=== PATIENT | female | born 1940 | race Caucasian/White ===

== ENCOUNTER → 2016-11-07 | Outpatient (CLI) | payer BC ==
[~2016-11-07] MED LIST: ANT25 PO; ASPEC81 PO; CLTP PO; CRG25 PO; CYAN100020 PO; CYM/30 PO; CZR50 PO; FRS/40 PO; INSDGI SC; KLN1X PO; NVLGI SC; OMEG10007 PO; PRLSR20 PO; RISP1TAB68 PO; SIMV20TA2 PO
[2016-11-07 16:21] LABS: BASO % 0.2 %; BASO ABS # 0.02 K/uL (0-0.2); COMPLETE YES; EOS % 2.5 %; HEMATOCRIT 40.5 % (37-47); IG% 0.2 %; LYMPH % 27.3 %; LYMPH ABS # 2.44 K/uL (1.2-3.4); MEAN CELL VOLUME 91.4 fL (80-100); MEAN CORPUSCULAR HEMOGLOBIN 32.1 pg (25-34); MEAN CORPUSCULAR HGB CONC 35.1 g/dl (32-36); MEAN PLATELET VOLUME 10.6 fL (7.4-10.4); MONO % 6.8 %; PLATELET COUNT 242 K/uL (130-400); RED BLOOD COUNT 4.43 M/uL (4.2-5.4); WHITE BLOOD COUNT 8.95 K/uL (4.8-10.8)
[2016-11-07 16:49] LABS: BLOOD UREA NITROGEN 22 mg/dl (7-18); BUN/CREATININE RATIO 12.7 (10-20); CALCIUM 9.3 mg/dl (8.5-10.1); CARBON DIOXIDE 29 mmol/L (21-32); CHLORIDE 102 mmol/L (98-107); GLUCOSE 182 mg/dl (70-99); POTASSIUM 3.8 mmol/L (3.5-5.1); SODIUM 142 mmol/L (136-145)
[2016-11-07 17:02] LABS: CHOLESTEROL 169 mg/dl (0-200); CHOLESTEROL/HDL RATIO 3.8; HDL CHOLESTEROL 44 mg/dl; LDL CHOLESTEROL CALCULATED 65 mg/dl; PHOSPHORUS 3.1 mg/dl (2.5-4.9); THYROID STIMULATING HORMONE 0.979 uIu/ml (0.300-4.500); TRIGLYCERIDES 301 mg/dl (0-150); VERY LOW DENSITY LIPOPROT CALC 60 mg/dl
[2016-11-07 18:01] LABS: URINE PROTIEN/CREAT RATIO 0.1 (0-0.2); URINE TOTAL PROTEIN 10.5 mg/dl (0-11.9)
[2016-11-08 07:03] LABS: ESTIMATED AVERAGE GLUCOSE 169 mg/dl; HA1C FLAG Normal (Normal)
--- NOTE | 2016-11-12 13:34 | CODING QUERY MEDICAL NECESSITY ---
SUPPORTING DIAGNOSIS NEEDED A supporting diagnosis is required for the test/procedure performed on this patient in order for us to be reimbursed by the patient's insurance. Please provide a supporting diagnosis for the following test/procedure listed below next to the test name along with your signature. *If there is no additional diagnosis for this patient that would support the following test/procedure please document that below next to the test/procedure. Test(s)/Procedure(s) that require a supporting diagnosis: DOS 11/07 * Vitamin D DIAGNOSIS: Provider Signature: Date: Thank you Sabi Alvarez Health Information Management Once completed, please kindly fax back to [phone] For questions please call [phone]
== END ==
LOC: C.LAB1850 15:05
PROVIDERS: ATTEND Nurse Practitioner Family
DX: N18.9 Chronic kidney disease, unspecified (principal); E11.8 Type 2 diabetes mellitus with unspecified complications; I12.9 Hypertensive chronic kidney disease with stage 1 through stage 4 chronic kidney disease, or unspecified chronic kidney disease; E78.2 Mixed hyperlipidemia; E55.9 Vitamin D deficiency, unspecified

== ENCOUNTER → 2016-11-22 | Outpatient (CLI) | payer BC | END | disposition home or self-care (01) | LOC: C.PAPS 09:47 | PROVIDERS: ATTEND Obstetrics & Gynecology | DX: Z01.419 Encounter for gynecological examination (general) (routine) without abnormal findings (principal) ==

== ENCOUNTER → 2017-03-14 | Outpatient (CLI) | payer BC ==
[2017-03-14 12:34] LABS: ESTIMATED AVERAGE GLUCOSE 163 mg/dl; HA1C FLAG Normal (Normal)
[2017-03-14 12:45] LABS: URINE APPEARANCE CLEAR (CLEAR); URINE BILIRUBIN NEG (NEG); URINE COLOR YELLOW; URINE EPITHELIAL CELL AUTO >30 /lpf (0-5); URINE NITRITE NEG (NEG); URINE SPECIFIC GRAVITY 1.016 (1.000-1.030); UROBILINOGEN NEG (NEG); ZZUR CULT IF INDIC CLEAN CATCH YES
[2017-03-14 12:50] LABS: BLOOD UREA NITROGEN 20 mg/dl (7-18); BUN/CREATININE RATIO 11.6 (10-20); CARBON DIOXIDE 30 mmol/L (21-32); CHLORIDE 101 mmol/L (98-107); GLUCOSE 196 mg/dl (70-99); POTASSIUM 3.6 mmol/L (3.5-5.1); SODIUM 141 mmol/L (136-145)
[2017-03-14 12:51] LABS: PHOSPHORUS 3.1 mg/dl (2.5-4.9)
[2017-03-14 12:55] LABS: MANUAL MICROSCOPIC REQUIRED? NO; REVIEW REQ? NO
[2017-03-14 12:57] LABS: CALCIUM 9.2 mg/dl (8.5-10.1)
[2017-03-14 13:17] LABS: URINE PROTIEN/CREAT RATIO 0.1 (0-0.2); URINE TOTAL PROTEIN 9.3 mg/dl (0-11.9)
== END | disposition home or self-care (01) ==
LOC: C.LAB1850 10:56
PROVIDERS: ATTEND Internal Medicine Nephrology
DX: N18.3 Chronic kidney disease, stage 3 (moderate) (principal); E11.29 Type 2 diabetes mellitus with other diabetic kidney complication

== ENCOUNTER → 2017-08-07 | Outpatient (CLI) | payer BC ==
[2017-08-07 11:54] LABS: ESTIMATED AVERAGE GLUCOSE 151 mg/dl; HA1C FLAG Normal (Normal)
== END | disposition home or self-care (01) ==
LOC: C.LAB1850 10:05
PROVIDERS: ATTEND Nurse Practitioner Family
DX: E11.8 Type 2 diabetes mellitus with unspecified complications (principal)

== ENCOUNTER → 2017-09-13 | Outpatient (CLI) | payer BC ==
[2017-09-13 15:33] LABS: BASO % 0.4 %; BASO ABS # 0.03 K/uL (0-0.2); COMPLETE YES; EOS % 3.1 %; HEMATOCRIT 39.3 % (37-47); IG% 0.1 %; LYMPH % 25.4 %; LYMPH ABS # 1.96 K/uL (1.2-3.4); MEAN CELL VOLUME 96.1 fL (80-100); MEAN CORPUSCULAR HEMOGLOBIN 32.3 pg (25-34); MEAN CORPUSCULAR HGB CONC 33.6 g/dl (32-36); MEAN PLATELET VOLUME 10.7 fL (7.4-10.4); MONO % 5.3 %; NEUT % 65.7 %; PLATELET COUNT 211 K/uL (130-400); RED BLOOD COUNT 4.09 M/uL (4.2-5.4); WHITE BLOOD COUNT 7.71 K/uL (4.8-10.8)
[2017-09-13 15:40] LABS: BLOOD UREA NITROGEN 18 mg/dl (7-18); BUN/CREATININE RATIO 12.1 (10-20); CALCIUM 9.3 mg/dl (8.5-10.1); CARBON DIOXIDE 32 mmol/L (21-32); CHLORIDE 99 mmol/L (98-107); CREATININE 1.51 mg/dl (0.60-1.20); GLUCOSE 279 mg/dl (70-99); PHOSPHORUS 2.7 mg/dl (2.5-4.9); POTASSIUM 3.6 mmol/L (3.5-5.1); SODIUM 137 mmol/L (136-145)
[2017-09-13 15:41] LABS: URINE APPEARANCE CLEAR (CLEAR); URINE BILIRUBIN NEG (NEG); URINE COLOR YELLOW; URINE EPITHELIAL CELL AUTO >30 /lpf (0-5); URINE NITRITE NEG (NEG); UROBILINOGEN NEG (NEG); ZZUR CULT IF INDIC CLEAN CATCH YES
[2017-09-13 15:43] LABS: MANUAL MICROSCOPIC REQUIRED? NO; REVIEW REQ? NO
[2017-09-13 15:51] LABS: URINE PROTIEN/CREAT RATIO 0.1 (0-0.2); URINE TOTAL PROTEIN 10.2 mg/dl (0-11.9)
== END | disposition home or self-care (01) ==
LOC: C.LAB1850 14:05
PROVIDERS: ATTEND Internal Medicine Nephrology
DX: N18.3 Chronic kidney disease, stage 3 (moderate) (principal)

== ENCOUNTER 2017-10-06 21:20 | Inpatient (IN) | payer BC, OTHER ==
[~2017-10-06] VITALS: Ht 160 cm; Wt 120.8 kg
[2017-10-06] MEDS ORDERED: ALBUT/IPRATROP 3MG/0.5MG NEB 3 ML VIAL ONE (21:40)
[2017-10-06] MEDS ORDERED: SODIUM CHLORIDE 0.9% 500ML 500 ML IV STA (21:42)
[2017-10-06] MEDS ORDERED: ACETAMINOPHEN 500 MG TAB PO STA (21:42)
--- NOTE | 2017-10-06 21:44 | EMERGENCY ROOM VISIT NOTE ---
ED Visit Note First contact with patient: 21:31 The patient was seen and examined with Meghan Chicas PA-C. I agree with the history, physical and findings. Please see the note for disposition and details.
[2017-10-06] MEDS ORDERED: LEVAQUIN 750MG / 150ML D5W IV STA (21:55)
[2017-10-06] MEDS ORDERED: FRS/40 PO (22:02)
[2017-10-06] MEDS ORDERED: RISP1TAB68 PO (22:02)
[2017-10-06] MEDS ORDERED: MECL1TAB42 PO (22:02)
[2017-10-06] MEDS ORDERED: TRAZ100T29 PO (22:02)
[2017-10-06] MEDS ORDERED: NVLG SC (22:02)
[2017-10-06] MEDS ORDERED: DULO60CA44 PO (22:02)
[2017-10-06] MEDS ORDERED: CARV25TA2 PO (22:02)
[2017-10-06] MEDS ORDERED: OMEG10007 PO (22:02)
[2017-10-06] MEDS ORDERED: ASPI81TA28 PO (22:02)
[2017-10-06] MEDS ORDERED: CYAN1TAB17 PO (22:02)
[2017-10-06] MEDS ORDERED: CLON0.5T3 PO (22:02)
[2017-10-06] MEDS ORDERED: LOSA1TAB38 PO (22:02)
[2017-10-06] MEDS ORDERED: PRLSR20 PO (22:02)
[2017-10-06] MEDS ORDERED: INSU1.2I SC (22:02)
[2017-10-06] MEDS ORDERED: CALCCAP7 PO (22:02)
[2017-10-06 22:04] LABS: BASO % 0.3 %; BASO ABS # 0.03 K/uL (0-0.2); COMPLETE YES; EOS % 0.3 %; HEMATOCRIT 37.6 % (37-47); IG% 0.3 %; LYMPH % 9.6 %; MEAN CELL VOLUME 93.5 fL (80-100); MEAN CORPUSCULAR HEMOGLOBIN 32.3 pg (25-34); MEAN CORPUSCULAR HGB CONC 34.6 g/dl (32-36); MEAN PLATELET VOLUME 9.7 fL (7.4-10.4); MONO % 12.1 %; NEUT % 77.4 %; PLATELET COUNT 242 K/uL (130-400); RED BLOOD COUNT 4.02 M/uL (4.2-5.4); WHITE BLOOD COUNT 10.42 K/uL (4.8-10.8)
[2017-10-06 22:19] LABS: ISTAT CREATININE 1.5 mg/dl (0.6-1.3); ISTAT HEMOGLOBIN 12.2 g/dl (12.0-16.0); ISTAT IONIZED CALCIUM 1.13 mmol/l (1.12-1.32)
[2017-10-06 22:26] LABS: INR 1.1 (0.9-1.1); PARTIAL THROMBOPLASTIN RATIO 1.1; PROTHROMBIN TIME (PATIENT) 11.4 SECONDS (9.0-12.0)
--- NOTE | 2017-10-06 22:27 | DIAGNOSTIC IMAGING REPORT ---
CHEST ONE VIEW PORTABLE CLINICAL HISTORY: Sepsis COMPARISON STUDY: 07/10/2013 FINDINGS: The cardiac and mediastinal contours remain stable. There is diffuse elevation of the interstitium finding suggesting pulmonary vascular congestion/fluid overload. An interstitial inflammatory process could appear similar but is felt to be statistically less likely. There is no lobar consolidation. There are no pleural effusions.[ IMPRESSION: Elevation of the interstitium, likely secondary to pulmonary vascular congestion/fluid overload. Clinical and radiographic follow-up is recommended. Electronically signed by: Wayne Rose M.D. 10/06/2017 10:26 PM Dictated Date/Time: 10/06/2017 10:25 PM
[2017-10-06 22:34] LABS: ALB/GLOB RATIO 0.6 (0.9-2); BUN/CREATININE RATIO 12.9 (10-20); CREATININE 1.56 mg/dl (0.60-1.20); MAGNESIUM 1.8 mg/dl (1.8-2.4); POTASSIUM 3.4 mmol/L (3.5-5.1)
[2017-10-06] MEDS ORDERED: OSELTAMIVIR PHOSPHATE 75 MG CAP PO STA (22:36)
[2017-10-06] MEDS ORDERED: IBUPROFEN 600 MG TAB PO STA (22:40)
[2017-10-06 22:49] LABS: CKMB/CK RATIO 0.3 (0-3.0); THYROID STIMULATING HORMONE 0.479 uIu/ml (0.300-4.500)
[2017-10-06 23:03] LABS: URINE APPEARANCE CLEAR (CLEAR); URINE BILIRUBIN NEG (NEG); URINE COLOR YELLOW; URINE EPITHELIAL CELL AUTO 0-5 /lpf (0-5); URINE NITRITE NEG (NEG); URINE SPECIFIC GRAVITY 1.014 (1.000-1.030); UROBILINOGEN NEG (NEG); ZZURINE CULT IF INDIC CATH NO
[2017-10-06 23:09] LABS: MANUAL MICROSCOPIC REQUIRED? NO; REVIEW REQ? NO
[2017-10-06] MEDS ORDERED: ONDANSETRON INJ 2 MG/ML 2 ML VIAL ONE (23:33)
[2017-10-07] VITALS (10 sets, daily range): BP systolic 101–142; BP diastolic 48–70; PULSE 57–66; TEMP 36.8–36.9; O2SAT 93–98; Ht 160 cm; Wt 120.8 kg
[2017-10-07] MEDS ORDERED: TRAZODONE HCL 100 MG TAB PO PRN (00:15)
[2017-10-07] MEDS ORDERED: MoRPHine SULFATE 2 MG/ML CARP IV PRN (00:30)
[2017-10-07] MEDS ORDERED: ONDANSETRON INJ 2 MG/ML 2 ML VIAL IV PRN (00:30)
[2017-10-07] MEDS ORDERED: POLYETHYLENE (MIRALAX) 17 GM PACK PO PRN (00:30)
[2017-10-07] MEDS ORDERED: ALUMINUM/MAGNESIUM/SIMETH (MAALOX MAX) 30 ML UDC PO PRN (00:30)
[2017-10-07] MEDS ORDERED: NITROGLYCERIN 0.4 MG SL PER TAB CHARGE SL PRN (00:30)
[2017-10-07] MEDS ORDERED: LEVALBUTEROL 1.25MG/0.5ML NEB INH PRN (00:30)
[2017-10-07] MEDS ORDERED: ACETAMINOPHEN 325 MG TAB PO PRN (00:30)
[2017-10-07] MEDS ORDERED: MAGNESIUM HYDROXIDE SUSP 30 ML UDC PO PRN (00:30)
[2017-10-07] MEDS ORDERED: SODIUM CHLORIDE 0.9% 1000ML 1,000 ML IV STA (00:43)
[2017-10-07] MEDS ORDERED: GLUCOSE 40% GEL 15 GM TUBE PO PRN (00:45)
[2017-10-07] MEDS ORDERED: GLUCAGON FOR INJ 1 MG VIAL SQ PRN (00:45)
[2017-10-07] MEDS ORDERED: GLUCOSE 10 TABS/TUBE PO PRN (00:45)
[2017-10-07] MEDS ORDERED: DEXTROSE 50% 50 ML SYR IV PRN (00:45)
--- NOTE | 2017-10-07 00:46 | EMERGENCY ROOM VISIT NOTE ---
History First contact with patient: 21:31 Chief Complaint: ILLNESS Stated Complaint: ALTERED MENTAL STATUS History of Present Illness The patient is a 77 year old female who presents to the Emergency Room with complaints of cough, congestion, fever, chills, increased confusion and weakness for the past few days steadily getting worse. Patient saw the walk-in clinic earlier this week and was placed on eyedrops for conjunctivitis. Patient was more confused this morning and having difficulty concentrating and figuring how to give herself insulin. This progressed throughout the day and family was concerned and brought her in. Patient was seen earlier this week and diagnosed with conjunctivitis. Blood sugar was 300 today. Patient and family deny chest pain, abdominal pain, vomiting, diarrhea, neck stiffness. Patient is tolerating by mouth fluids but has a decreased appetite. Patient was incontinent of urine today. She has received the flu and pneumonia vaccine. No recent antibiotics. No recent hospitalizations. Review of Systems See HPI for pertinent positives & negatives. A total of 10 systems reviewed and were otherwise negative. Past Medical/Surgical History Medical Problems: (1) CHF exacerbation (2) Fever Chronic kidney disease stage III, reflux, rhinitis, diabetes, coronary artery disease, dermatitis, dizziness, obesity, gait disturbance, hypertension, left bundle branch block, lumbar radicular neuropathy, mitral insufficiency, hyperlipidemia, peripheral neuropathy, spinal stenosis, vitamin D deficiency Social History Smoking Status: Never Smoker Drug Use: none Marital Status: Housing Status: lives with significant other Occupation Status: retired Current/Historical Medications Scheduled Aspirin (Aspirin Ec), 81 MG PO DAILY Calcium Carbonate-Vitamin D (Calcium Plus Vitamin D), 2 CAP PO DAILY Carvedilol (Coreg), 25 MG PO BID Cyanocobalamin (B-12), 1 TAB PO DAILY Duloxetine Hcl (Cymbalta), 60 MG PO DAILY Fish Oil ([place]-3), 1 CAP PO BID Furosemide (Lasix), 40 MG PO BID Insulin Aspart (Novolog), 60-70 UNITS SC DAILY Insulin Glargine (Toujeo Solostar), 74 UNITS SC HS Losartan Potassium (Cozaar), 100 MG PO DAILY Omeprazole (Prilosec), 20 MG PO DAILY Risperidone (Risperdal), 1 MG PO HS Scheduled PRN Clonazepam (Klonopin), 0.5 TAB PO HS PRN for Sleep Meclizine Hcl (Meclizine Hcl), 0.5-1 TAB PO TID PRN for Dizziness or Vertigo Trazodone Hcl (Trazodone), 100 MG PO HS PRN for Sleep Physical Exam Vital Signs Date Time Temp Pulse Resp B/P (MAP) Pulse Ox O2 Delivery O2 Flow Rate FiO2 10/07/17 00:13 69 16 124/58 95 Nasal Cannula 4.0 10/06/17 23:10 38.6 72 21 148/66 95 Nasal Cannula 4.0 10/06/17 22:02 82 24 166/79 95 Room Air 4.0 10/06/17 21:59 75 10/06/17 21:37 39.4 83 28 168/82 86 Room Air 10/06/17 21:25 39.2 87 20 162/78 90 Room Air Physical Exam VITALS: Vitals are noted on the nurse's note and reviewed by myself. Vital signs hypoxic and febrile GENERAL: Elderly female appearing acutely ill working to breathe, in acute distress, diaphoretic SKIN: The skin was without rashes, erythema, edema, or bruising. HEAD: Normocephalic atraumatic. EARS: External auditory canals clear, tympanic membranes pearly pierre without erythema or effusion bilaterally. EYES: Pupils equal round and reactive to light and accommodation. Right subconjunctival hemorrhage, left eye Conjunctivae without injection, sclerae without icterus. Extraocular movements intact. NOSE: Patent, turbinates without inflammation or discharge. No sinus tenderness. MOUTH: Mucous membranes dry. Pharynx without erythema or exudate. Uvula midline. Airway patent. Tongue does not deviate. NECK: Supple without nuchal rigidity. No lymphadenopathy. No thyromegaly. Cervical spine is nontender. No JVD. HEART: Regular rate and rhythm LUNGS: Mild diffuse end expiratory wheezes. No retractions or accessory muscle use. ABDOMEN: Positive bowel sounds x 4. Normal tympanic percussion. Soft, nontender, without masses or organomegaly. Zamudio sign negative. No guarding or rebound tenderness. MUSCULOSKELETAL: No muscle atrophy, erythema, noted. 5 Out of 5 strength throughout. NEURO: Patient was alert and oriented to person place and time. Normal sensation to light and sharp touch. No focal neurological deficits. Medical Decision & Procedures Laboratory Results 10/06/17 21:52 Red Blood Count 4.02, Mean Corpuscular Volume 93.5, Mean Corpuscular Hemoglobin 32.3, Mean Corpuscular Hemoglobin Concent 34.6, Mean Platelet Volume 9.7, Neutrophils (%) (Auto) 77.4, Lymphocytes (%) (Auto) 9.6, Monocytes (%) (Auto) 12.1, Eosinophils (%) (Auto) 0.3, Basophils (%) (Auto) 0.3, Neutrophils # (Auto ) 8.07, Lymphocytes # (Auto) 1.00, Monocytes # (Auto) 1.26, Eosinophils # (Auto ) 0.03, Basophils # (Auto) 0.03 10/06/17 21:52 Test 10/06/17 21:45 10/06/17 21:52 10/06/17 22:00 10/06/17 22:05 Influenza Type A Antigen POS for Influ A (NEG) Influenza Type B Antigen Neg for Influ B (NEG) White Blood Count 10.42 K/uL (4.8-10.8) Red Blood Count 4.02 M/uL (4.2-5.4) Hemoglobin 13.0 g/dL (12.0-16.0) Hematocrit 37.6 % (37-47) Mean Corpuscular Volume 93.5 fL (80-100) Mean Corpuscular Hemoglobin 32.3 pg (25-34) Mean Corpuscular Hemoglobin Concent 34.6 g/dl (32-36) Platelet Count 242 K/uL (130-400) Mean Platelet Volume 9.7 fL (7.4-10.4) Neutrophils (%) (Auto) 77.4 % Lymphocytes (%) (Auto) 9.6 % Monocytes (%) (Auto) 12.1 % Eosinophils (%) (Auto) 0.3 % Basophils (%) (Auto) 0.3 % Neutrophils # (Auto) 8.07 K/uL (1.4-6.5) Lymphocytes # (Auto) 1.00 K/uL (1.2-3.4) Monocytes # (Auto) 1.26 K/uL (0.11-0.59) Eosinophils # (Auto) 0.03 K/uL (0-0.5) Basophils # (Auto) 0.03 K/uL (0-0.2) RDW Standard Deviation 44.4 fL (36.4-46.3) RDW Coefficient of Variation 13.0 % (11.5-14.5) Immature Granulocyte % (Auto) 0.3 % Immature Granulocyte # (Auto) 0.03 K/uL (0.00-0.02) Prothrombin Time 11.4 SECONDS (9.0-12.0) Prothromb Time International Ratio 1.1 (0.9-1.1) Activated Partial Thromboplast Time 27.7 SECONDS (21.0-31.0) Partial Thromboplastin Ratio 1.1 Est Creatinine Clear Calc Drug Dose 39.5 ml/min Estimated GFR () 37.0 Estimated GFR (Non- 31.9 BUN/Creatinine Ratio 12.9 (10-20) Calcium Level 9.0 mg/dl (8.5-10.1) Magnesium Level 1.8 mg/dl (1.8-2.4) Total Bilirubin 0.4 mg/dl (0.2-1) Aspartate Amino Transf (AST/SGOT) 27 U/L (15-37) Alanine Aminotransferase (ALT/SGPT) 18 U/L (12-78) Alkaline Phosphatase 101 U/L (45-117) Total Creatine Kinase 475 U/L (26-192) Creatine Kinase MB 1.4 ng/ml (0.5-3.6) Creatine Kinase MB Ratio 0.3 (0-3.0) Troponin I 0.129 ng/ml (0-0.045) Total Protein 8.1 gm/dl (6.4-8.2) Albumin 3.0 gm/dl (3.4-5.0) Globulin 5.1 gm/dl (2.5-4.0) Albumin/Globulin Ratio 0.6 (0.9-2) Thyroid Stimulating Hormone (TSH) 0.479 uIu/ml (0.300-4.500) Bedside Lactic Acid Venous 1.27 mmol/L (0.90-1.70) Bedside Hemoglobin 12.2 g/dl (12.0-16.0) Bedside Hematocrit 36 % (37-47) Bedside Sodium 137 mEq/L (135-144) Bedside Potassium 3.5 mEq/L (3.3-5.0) Bedside Chloride 95 mEq/L (101-112) Bedside Total CO2 31 mEq/l (24-31) Anion Gap 16.0 mmol/L (16-25) Bedside Blood Urea Nitrogen 19 mg/dl (7-18) Bedside Creatinine 1.5 mg/dl (0.6-1.3) Bedside Glucose (other) 147 mg/dl (70-99) Bedside Ionized Calcium (Jayne) 1.13 mmol/l (1.12-1.32) Test 10/06/17 22:13 10/06/17 22:45 Bedside Troponin I 0.090 ng/ml (0-0.045) Urine Color YELLOW Urine Appearance CLEAR (CLEAR) Urine pH 5.0 (4.5-7.5) Urine Specific [place] 1.014 (1.000-1.030) Urine Protein NEG (NEG) Urine Glucose (UA) NEG (NEG) Urine Ketones NEG (NEG) Urine Occult Blood 2+ (NEG) Urine Nitrite NEG (NEG) Urine Bilirubin NEG (NEG) Urine Urobilinogen NEG (NEG) Urine Leukocyte Esterase NEG (NEG) Urine WBC (Auto) 1-5 /hpf (0-5) Urine RBC (Auto) 5-10 /hpf (0-4) Urine Hyaline Casts (Auto) 1-5 /lpf (0-5) Urine Epithelial Cells (Auto) 0-5 /lpf (0-5) Urine Bacteria (Auto) NEG (NEG) Medications Administered Medications (Trade) Dose Ordered Sig/Mindi Route Start Time Stop Time Status Last Admin Dose Admin Albuterol/ Ipratropium (Duoneb) 3 ml STK-MED ONCE .ROUTE 10/06/17 21:40 10/06/17 21:41 DC 10/06/17 21:57 3 ML Acetaminophen (Tylenol Tab) 1,000 mg NOW STAT PO 10/06/17 21:42 10/06/17 21:44 DC 10/06/17 21:57 1,000 MG Sodium Chloride 500 ml @ 999 mls/hr Q31M STAT IV 10/06/17 21:42 10/06/17 22:12 DC 10/06/17 21:42 999 MLS/HR Levofloxacin (Levaquin / D5W) 750 mg NOW STAT IV 10/06/17 21:55 10/06/17 21:56 DC 10/06/17 22:02 750 MG Oseltamivir Phosphate (Tamiflu Cap) 75 mg NOW STAT PO 10/06/17 22:36 10/06/17 22:37 DC 10/06/17 22:58 75 MG Ibuprofen (Motrin Tab) 600 mg NOW STAT PO 10/06/17 22:40 10/06/17 22:41 DC 10/06/17 22:58 600 MG Ondansetron HCl (Zofran Inj) 4 mg STK-MED ONCE .ROUTE 10/06/17 23:33 10/06/17 23:34 DC 10/06/17 23:33 4 MG ED Course Prior records/ancillary studies reviewed. Triage Nursing notes reviewed. Additional history obtained from family. The patient's history was concerning for fever, increased confusion, flu like symptoms. Differential diagnosis: Etiologies such as influenza, sepsis, UTI, pneumonia, metabolic, electrolyte abnormalities, cardiac sources, intracerebral event, toxicologic, neurologic, as well as others were entertained. Physical examination: As above. Pertinent findings were high fever, dehydration, cough, wheeze. Vital signs reviewed and revealed febrile, hypoxemic. ER treatment provided: IV fluid resuscitation with Normal saline solution, 500 mL bolus. IV fluid hydration with Normal saline solution at 125 mL/hr. Blood and urine cultures Antibiotics: Levaquin, Tamiflu On reassessment the patient vital signs improved. Diagnostics interpretation by me: ECG: Normal sinus, left bundle branch block, no acute ST-T wave changes, rate of 78. EKG compared to prior EKG with no acute changes noted. Impression normal sinus rhythm with a left bundle branch block interpreted by myself The labs revealed stable H&H on CBC. Chemistry panel revealed mild hyperglycemia without DKA. LFTs revealed. Cardiac enzymes were elevated. Serum Lactate measurement was 1.27. Blood and urine cultures are pending. Imaging studies: Chest xray revealed concerning for possible right lower lobe consolidation per my interpretation. Head CT negative for intracranial bleed per radiology Consultation: A consultation was placed with Dr Parikh, hospitalist. The case was discussed and diagnostics were reviewed. The patient was evaluated in the ER for further treatment. Exam and history seem consistent with influenza with possible pneumonia. Patient is quite hypoxic. She was febrile and dehydrated. She is medicated as above and felt much better. She agrees to treatment plan of admission. She was started on antibiotics and antivirals. She was hydrated as above. She will be evaluated by medicine. She was reassessed multiple times and had great improvement. Case reviewed with my attending. The chart was completed utilizing Dragon Speech voice recognition software. Grammatical errors, random word insertions, pronoun errors, and incomplete sentences are an occassional consequence of this system due to software limitations, ambient noise, and hardware issues. Any formal questions or concerns about the content, text, or information contained within the body of this dictation should be directly addressed to the physician assistant professor of education for clarification. Medical Decision As above Medication Reconcilliation Current Medication List: was personally reviewed by me Blood Pressure Screening Patient's blood pressure: Elevated blood pressure Blood pressure disposition: Referred to PCP Impression Primary Impression: Influenza A Additional Impressions: Hypoxemia Pneumonia Elevated troponin Departure Information Dispostion Being Evaluated By Hospitalist Condition FAIR Referrals Karan Zapata M.D. (PCP) Patient Instructions [facility] Problem Qualifiers
--- NOTE | 2017-10-07 01:43 | History and Physical ---
History & Physical Date & Time of Service: Oct 07, 2017 at 01:04 Chief Complaint: Altered Mental Status Primary Care Physician: Karan Zapata M.D. History of Present Illness Source: patient 77 y/o F Hx CHF, CAD, CKD III, DM II, LBBB, morbid obesity. Pt states she developed conjunctivitis, congestion and a cough one week ago. She was evaluated at [facility] 3 days prior. She was provided with eye drops and told that her congestion would likely run it's course. She has since developed a productive cough, SOB, high fever and episodes of confusion. The pt was hypoxic and febrile on presentation to the ER. Initial labs reveal an elevated troponin although we have no baseline for comparison. A rapid flu prove (+) for influenza A. A CXR may represent vascular congestion and a RLL infiltrate is suspected. She denies CP, N/V, diarrhea or dysuria. She is fully oriented at the time of admission Past Medical/Surgical History 1) CKD III 2) CHF - unspecified 3) LBBB 4) Morbid obesity 5) DM II 6) Spinal stenosis 7) Hyperlipidemia 8) CAD 9) HTN 10) Unstable gait Family History Noncontributory Social History Lives with who currently has flu-like symptoms and is receiving Tamiflu Smoking Status: Never Smoker Drug Use: none Marital Status: Occupational Status: retired Immunizations History of Influenza Vaccine: No History of Tetanus Vaccine?: No History of Pneumococcal: Yes History of Hepatitis B Vaccine: No Multi-Drug Resistant Organisms History of MDRO: No Allergies Coded Allergies: Sulfa Drugs (Verified Allergy, Unknown, 04/14/13) Home Medications Scheduled Aspirin (Aspirin Ec), 81 MG PO DAILY Calcium Carbonate-Vitamin D (Calcium Plus Vitamin D), 2 CAP PO DAILY Carvedilol (Coreg), 25 MG PO BID Cyanocobalamin (B-12), 1 TAB PO DAILY Duloxetine Hcl (Cymbalta), 60 MG PO DAILY Fish Oil ([place]-3), 1 CAP PO BID Furosemide (Lasix), 40 MG PO BID Insulin Aspart (Novolog), 60-70 UNITS SC DAILY Insulin Glargine (Toujeo Solostar), 74 UNITS SC HS Losartan Potassium (Cozaar), 100 MG PO DAILY Omeprazole (Prilosec), 20 MG PO DAILY Risperidone (Risperdal), 1 MG PO HS Scheduled PRN Clonazepam (Klonopin), 0.5 TAB PO HS PRN for Sleep Meclizine Hcl (Meclizine Hcl), 0.5-1 TAB PO TID PRN for Dizziness or Vertigo Trazodone Hcl (Trazodone), 100 MG PO HS PRN for Sleep Review of Systems Constitutional: + fever, + weakness, + fatigue, No chills, No sweats Eyes: + redness, + discharge (R eye), No worsening of vision Respiratory: + cough, + sputum, + shortness of breath Cardiovascular: No chest pain, No orthopnea, No PND Abdomen: No pain, No nausea, No vomiting Musculoskeletal: No joint pain Genitourinary - Female: No dysuria, No urinary frequency, No urinary urgency Neurologic: + problem reported (episodes of confusion reported ), No memory loss Psychiatric: No depression symptoms Endocrine: + fatigue Hematologic / Lymphatic: No abnormal bleeding/bruising Integumentary: No rash Allergic / Immunologic: No environmental allergies Physical Exam Vital Signs Date Time Temp Pulse Resp B/P (MAP) Pulse Ox O2 Delivery O2 Flow Rate FiO2 10/06/17 23:10 38.6 72 21 148/66 95 Nasal Cannula 4.0 10/06/17 21:59 75 10/06/17 21:37 39.4 83 28 168/82 86 Room Air 10/06/17 21:25 39.2 87 20 162/78 90 Room Air General Appearance: WD/WN, + obese Head: normocephalic Eyes: normal inspection, + pertinent finding (R conjunctival injection) ENT: normal ENT inspection, hearing grossly normal, TMs normal Neck: supple, + pertinent finding (Cannot assess JVD) Respiratory/Chest: chest non-tender, lungs clear, normal breath sounds, + pertinent finding (Could not appreciate crackles or wheezing - good b/l air entry) Cardiovascular: regular rate, rhythm, + pertinent finding (faint heart sounds) Abdomen/GI: normal bowel sounds, non tender, soft Back: normal inspection, no CVA tenderness Extremities/Musculoskelatal: normal inspection, no calf tenderness, no pedal edema 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, no motor/sensory deficits, alert, oriented x 3 Skin: normal color, warm/dry Diagnostics Laboratory Results Results Past 24 Hours Test 10/06/17 21:45 10/06/17 21:52 10/06/17 22:00 10/06/17 22:05 Range/Units Influenza Type A Antigen POS for Influ A NEG Influenza Type B Antigen Neg for Influ B NEG White Blood Count 10.42 4.8-10.8 K/uL Red Blood Count 4.02 4.2-5.4 M/uL Hemoglobin 13.0 12.0-16.0 g/dL Hematocrit 37.6 37-47 % Mean Corpuscular Volume 93.5 80-100 fL Mean Corpuscular Hemoglobin 32.3 25-34 pg Mean Corpuscular Hemoglobin Concent 34.6 32-36 g/dl Platelet Count 242 130-400 K/uL Mean Platelet Volume 9.7 7.4-10.4 fL Neutrophils (%) (Auto) 77.4 % Lymphocytes (%) (Auto) 9.6 % Monocytes (%) (Auto) 12.1 % Eosinophils (%) (Auto) 0.3 % Basophils (%) (Auto) 0.3 % Neutrophils # (Auto) 8.07 1.4-6.5 K/uL Lymphocytes # (Auto) 1.00 1.2-3.4 K/uL Monocytes # (Auto) 1.26 0.11-0.59 K/uL Eosinophils # (Auto) 0.03 0-0.5 K/uL Basophils # (Auto) 0.03 0-0.2 K/uL RDW Standard Deviation 44.4 36.4-46.3 fL RDW Coefficient of Variation 13.0 11.5-14.5 % Immature Granulocyte % (Auto) 0.3 % Immature Granulocyte # (Auto) 0.03 0.00-0.02 K/uL Prothrombin Time 11.4 9.0-12.0 SECONDS Prothromb Time International Ratio 1.1 0.9-1.1 Activated Partial Thromboplast Time 27.7 21.0-31.0 SECONDS Partial Thromboplastin Ratio 1.1 Sodium Level 135 136-145 mmol/L Potassium Level 3.4 3.5-5.1 mmol/L Chloride Level 97 98-107 mmol/L Carbon Dioxide Level 32 21-32 mmol/L Anion Gap 6.0 16.0 16-25 mmol/L Blood Urea Nitrogen 20 7-18 mg/dl Creatinine 1.56 0.60-1.20 mg/dl Est Creatinine Clear Calc Drug Dose 39.5 ml/min Estimated GFR () 37.0 Estimated GFR (Non- 31.9 BUN/Creatinine Ratio 12.9 10-20 Random Glucose 143 70-99 mg/dl Calcium Level 9.0 8.5-10.1 mg/dl Magnesium Level 1.8 1.8-2.4 mg/dl Total Bilirubin 0.4 0.2-1 mg/dl Aspartate Amino Transf (AST/SGOT) 27 15-37 U/L Alanine Aminotransferase (ALT/SGPT) 18 12-78 U/L Alkaline Phosphatase 101 45-117 U/L Total Creatine Kinase 475 26-192 U/L Creatine Kinase MB 1.4 0.5-3.6 ng/ml Creatine Kinase MB Ratio 0.3 0-3.0 Troponin I 0.129 0-0.045 ng/ml Total Protein 8.1 6.4-8.2 gm/dl Albumin 3.0 3.4-5.0 gm/dl Globulin 5.1 2.5-4.0 gm/dl Albumin/Globulin Ratio 0.6 0.9-2 Thyroid Stimulating Hormone (TSH) 0.479 0.300-4.500 uIu/ml Bedside Lactic Acid Venous 1.27 0.90-1.70 mmol/L Bedside Hemoglobin 12.2 12.0-16.0 g/dl Bedside Hematocrit 36 37-47 % Bedside Sodium 137 135-144 mEq/L Bedside Potassium 3.5 3.3-5.0 mEq/L Bedside Chloride 95 101-112 mEq/L Bedside Total CO2 31 24-31 mEq/l Bedside Blood Urea Nitrogen 19 7-18 mg/dl Bedside Creatinine 1.5 0.6-1.3 mg/dl Bedside Glucose (other) 147 70-99 mg/dl Bedside Ionized Calcium (Jayne) 1.13 1.12-1.32 mmol/l Test 10/06/17 22:13 10/06/17 22:45 Range/Units Bedside Troponin I 0.090 0-0.045 ng/ml Urine Color YELLOW Urine Appearance CLEAR CLEAR Urine pH 5.0 4.5-7.5 Urine Specific [place] 1.014 1.000-1.030 Urine Protein NEG NEG Urine Glucose (UA) NEG NEG Urine Ketones NEG NEG Urine Occult Blood 2+ NEG Urine Nitrite NEG NEG Urine Bilirubin NEG NEG Urine Urobilinogen NEG NEG Urine Leukocyte Esterase NEG NEG Urine WBC (Auto) 1-5 0-5 /hpf Urine RBC (Auto) 5-10 0-4 /hpf Urine Hyaline Casts (Auto) 1-5 0-5 /lpf Urine Epithelial Cells (Auto) 0-5 0-5 /lpf Urine Bacteria (Auto) NEG NEG Microbiology Results 10/06/17 Blood Culture, Received Pending 10/06/17 Blood Culture, Received Pending Diagnostic Radiology CXR: Elevation of the interstitium, likely secondary to pulmonary vascular congestion /fluid overload. Clinical and radiographic follow-up is recommended. EKG Sinus, LBBB Impression Assessment and Plan 77 y/o F Hx CHF, CAD, CKD III, DM II, LBBB, morbid obesity. Pt states she developed conjunctivitis, congestion and a cough one week ago. She was evaluated at [facility] 3 days prior. She was provided with eye drops and told that her congestion would likely run it's course. She has since developed a productive cough, SOB, high fever and episodes of confusion. The pt was hypoxic and febrile on presentation to the ER. Initial labs reveal an elevated troponin although we have no baseline for comparison. A rapid flu prove (+) for influenza A. A CXR may represent vascular congestion and a RLL infiltrate is suspected. She denies CP, N/V, diarrhea or dysuria. She is fully oriented at the time of admission. 1) Fever, hypoxia - Influ A + , possible R PNM - pt will be sent for a CT chest as her CXR is equivocal and an infiltrate may represent an important finding in the setting of confirmed Influenza. In addition, it is difficult to assess her volume status owing to her habitus. She is placed on Tamiflu although I suspect she may be past the window for effectivity. She has been started on Levaquin and we cheryl add Vancomycin if an infiltrate is confirmed considering the time of onset of her initial symptoms. Duonebs, PRN Xopenex and an 02 protocol provided. 2) AMS reported is likely the result of infection and fever - she is oriented on admission. 3) CHF - unspecified - Volume status cannot be adequately assessed clinically - she is pending a CT chest as the CXR was read as vascular congestion. We may choose to provide IVF and hols her AM Lasix based on the result. 4) CKD III - baseline creatinine is not known - will trend BMP - again a CT chest will be used to help assess volume status. 5) CAD - troponin is elevated - no clear evidence of ACS - may have demand - related elevation as she was hypoxic on arrival - Her EKG is nondiagnostic but does not meet Sgarbosa criteria - we will continue ASA - presumably she is statin-intolerant. Serial enzymes and an echo are requested. 6) DM - placed on SS Full code - Heparin prophylaxis Total time for this admit including review of labs, meds, imaging, EKG - discussion with pt , family , ER attending - 40 min Level of Care Telemetry Resuscitation Status FULL RESUSCITATION VTE Prophylaxis VTE Risk Assessment Done? Y/N: Yes Risk Level: Moderate
[2017-10-07] MEDS ORDERED: INSULIN GLARGINE SOLOSTAR 100 UNITS/ML 3 ML PEN SC ONE (01:45)
[2017-10-07] MEDS: NITROGLYCERIN OINT 2% 1GM PACKET EXT SCH ×4 (01:59→18:00)
[2017-10-07] MEDS ORDERED: LEVOFLOXACIN CONSULT ACTIVE PRN (02:00)
[2017-10-07] MEDS: ALBUT/IPRATROP 3MG/0.5MG NEB 3 ML VIAL INH SCH ×4 (02:10→18:55)
[2017-10-07 04:23] LABS: HEMATOCRIT 34.6 % (37-47); MEAN CORPUSCULAR HEMOGLOBIN 31.8 pg (25-34); MEAN CORPUSCULAR HGB CONC 33.8 g/dl (32-36); MEAN PLATELET VOLUME 9.6 fL (7.4-10.4); PLATELET COUNT 209 K/uL (130-400); RED BLOOD COUNT 3.68 M/uL (4.2-5.4); WHITE BLOOD COUNT 9.44 K/uL (4.8-10.8)
[2017-10-07 04:41] LABS: BUN/CREATININE RATIO 13.6 (10-20); CALCIUM 8.8 mg/dl (8.5-10.1); CREATININE 1.75 mg/dl (0.60-1.20); POTASSIUM 3.6 mmol/L (3.5-5.1)
--- NOTE | 2017-10-07 05:38 | DIAGNOSTIC IMAGING REPORT ---
HEAD WITHOUT CONTRAST (CT) CLINICAL HISTORY: 77 years-old Female presenting with AMS. TECHNIQUE: Multidetector CT imaging of the head was performed without the use of intravenous contrast. IV contrast: None. A dose lowering technique was used consistent with the principles of ALARA (as low as reasonably achievable). COMPARISON: None. CT DOSE (mGy.cm): The estimated cumulative dose is 537.48 mGy.cm. FINDINGS: [employer] topogram: Unremarkable. Image quality is slightly degraded by motion artifact. Ventricles and sulci normal in size. Brain parenchyma normal in appearance with preserved pierre-white differentiation. No mass effect or midline shift. No hemorrhage or acute territorial infarct. No extra-axial fluid collection. Mild mucosal thickening in the right maxillary sinus and ethmoid air cells. Calvarium intact. Bilateral [place] lenses are absent. IMPRESSION: 1. No acute intracranial abnormality. Electronically signed by: Karan Love M.D. 10/07/2017 5:36 AM Dictated Date/Time: 10/07/2017 5:34 AM
--- NOTE | 2017-10-07 05:51 | DIAGNOSTIC IMAGING REPORT ---
(CHEST) THORAX WITHOUT CLINICAL HISTORY: 77 years-old Female presenting with pnm vs chf. TECHNIQUE: Multidetector CT imaging of the chest was performed without the use of intravenous contrast. IV contrast: None. A dose lowering technique was used consistent with the principles of ALARA (as low as reasonably achievable). COMPARISON: Chest x-ray performed earlier the same day. CT DOSE (mGy.cm): The estimated cumulative dose is 1151.95 mGy.cm. FINDINGS: [facility] topogram: Partially visualized lumbar fusion hardware. On soft tissue windows, thyroid gland is enlarged with numerous small nodules likely present. Few subcentimeter prominent pretracheal and subcarinal lymph nodes likely reactive. Evaluation of the vickey limited without intravenous contrast. Atherosclerosis of the aorta. The ascending aorta is not significantly enlarged, measuring less than 4 cm in diameter. Mild multichamber enlargement of the heart with focal calcification either in the mitral valve or papillary muscle. No pericardial or pleural effusion. Hepatic steatosis. On lung windows, dependent changes likely atelectasis. Evaluation of the lung parenchyma is mildly degraded by motion artifact. Minimal vague groundglass opacity noted at the right apex (series 4 image 49). Calcified granuloma noted in the left upper lobe. Airways patent. On bone windows, degenerative changes of the spine. Bone marrow is diffusely heterogeneous and sclerotic. IMPRESSION: 1. Cardiomegaly. No evidence of pulmonary edema or convincing evidence of infection. Minimal groundglass opacity at the right apex is nonspecific, especially given the limitations in image quality secondary to respiratory motion artifact. 2. Dependent atelectasis. 3. Thyromegaly. 4. Diffusely heterogeneous bone marrow. Electronically signed by: Karan Love M.D. 10/07/2017 5:49 AM Dictated Date/Time: 10/07/2017 5:42 AM
[2017-10-07] MEDS: HEPARIN SOD 5000 UNIT/0.5 ML CARP SQ SCH ×3 (06:00→21:43)
[2017-10-07] MEDS ORDERED: MECLIZINE HCL 12.5 MG TAB PO PRN (07:00)
[2017-10-07] MEDS ORDERED: CLONAZEPAM 0.5 MG TAB PO PRN (07:00)
[2017-10-07] MEDS: LOSARTAN POTASSIUM 50 MG TAB PO SCH (08:45)
[2017-10-07] MEDS: FUROSEMIDE 40 MG TAB PO SCH ×2 (08:45→21:39)
[2017-10-07] MEDS: OMEGA-3 (PURIFIED FISH OIL) 1 GM CAP PO SCH ×2 (08:45→21:39)
[2017-10-07] MEDS: ASPIRIN 81 MG ECTAB PO SCH (08:45)
[2017-10-07] MEDS: DULOXETINE HCL 60 MG CAP PO SCH (08:45)
[2017-10-07] MEDS: PANTOprazole SOD 40 MG TAB PO SCH (08:46)
[2017-10-07] MEDS: CARVEDILOL 25 MG TAB PO SCH ×2 (08:46→21:38)
[2017-10-07] MEDS: CYANOCOBALAMIN 2,500 MCG SUBL TAB PO SCH (08:46)
[2017-10-07] MEDS: INSULIN ASPART 100 UNITS/ML 3 ML PEN SC SCH ×4 (08:48→21:30)
[2017-10-07] MEDS: OSELTAMIVIR PHOSPHATE SUSP 30 MG/5 ML UDP PO SCH ×2 (09:21→21:46)
--- NOTE | 2017-10-07 13:36 | ECHOCARDIOGRAM REPORT ---
*NOTICE TO RECEIVING LIBERTARIAN AGENCY This information is strictly Confidential and protected under [place] law. [place] law prohibits you from making any further disclosure of this information unless further disclosure is expressly permitted by the written consent of the person to whom it pertains or is authorized by law. A general authorization for the release of medical or other information is not sufficient for this purpose. Hospital accepts no responsibility if the information is made available to any other person, INCLUDING THE PATIENT. Interpretation Summary * Name: SPEEDY MCCALL Study Date: 10/07/2017 09:20 AM BP: 101/50 mmHg * Patient Location: C.2E\S\E209\S\1 HR: 61 * : 1940 (M/d/yyyy) Gender: Female Height: 63 in * Age: 77 yrs Ethnicity: [place] Weight: 271 lb * Ordering Physician: Dane Parikh * Referring Physician: Self, Referred * Performed By: Tahira Healy RCS * * Reason For Study: ELEVATED TROPONIN * BSA: 2.2 m2 * -- Conclusions -- * Limited study due to patient's bodu habitus * The left ventricle is normal in size. * There is moderate concentric left ventricular hypertrophy. * Left ventricular systolic function is normal. * Ejection Fraction = 50-55%. * Septal motion is consistent with conduction abnormality. * The aortic root is normal size. * Prominent atherosclerosis of the Mid and distal Arch. * The right ventricle is normal in size and function. * Aortic valve sclerosis mild, without significant aortic valvular stenosis. * Grade I diastolic dysfunction, (abnormal relaxation pattern). Procedure Details * A complete two-dimensional transthoracic echocardiogram was performed (2D, M-mode, Doppler and color flow Doppler). * The study was technically difficult. * There were technical limitations due to patient'sbody habitus * A contrast injection of Definity was performed to improve assessment of LV function. * Contrast was injected into an intravenous site in the right arm. * Lot # [id number] of Definity utilized for procedure. * One vial of Definity ultrasound contrast was diluted in normal saline to a total volume of 10 ml. A total of '2' ml of solution was administered during imaging. * Expiration date DEC 02. * The attending nurse who injected the contrast agent was CLARISA WILLIS RN. Left Ventricle * The left ventricle is normal in size. * There is moderate concentric left ventricular hypertrophy. * Left ventricular systolic function is normal. * Ejection Fraction = 50-55%. * Septal motion is consistent with conduction abnormality. Right Ventricle * The right ventricle is normal in size and function. * The right ventricular systolic function is normal as assessed by tricuspid annular plane systolic excursion (TAPSE) (normal >1.5 cm). Atria * The left atrium is mildly dilated. * Right atrial size is normal. Mitral Valve * There is moderate mitral annular calcification. * There is trace mitral regurgitation. Tricuspid Valve * The tricuspid valve is not well visualized, but is grossly normal. * There is trace tricuspid regurgitation. Aortic Valve * Aortic valve sclerosis mild, without significant aortic valvular stenosis. * No aortic regurgitation is present. Pulmonic Valve * The pulmonic valve is not well visualized. Great Vessels * The aortic root is normal size. * Prominent atherosclerosis of the Mid and distal Arch. * Normal inferior vena cava diameter and respiratory variation suggests normal central venous pressure. Left Ventricular Diastolic Function * Grade I diastolic dysfunction, (abnormal relaxation pattern). MMode 2D Measurements and Calculations IVSd 1.7 cm IVSs 1.8 cm LVIDd 5.1 cm LVIDs 3.8 cm LVPWd 1.5 cm LVPWs 1.7 cm IVS/LVPW 1.1 FS 24.4 % EDV(Teich) 122.0 ml ESV(Teich) 63.1 ml EF(Teich) 48.3 % EDV(cubed) 130.1 ml ESV(cubed) 56.2 ml EF(cubed) 56.8 % % IVS thick 5.8 % % LVPW thick 10.9 % LV mass(C)d 374.0 grams LV mass(C)dI 170.0 grams/m\S\2 LV mass(C)s 286.2 grams LV mass(C)sI 130.1 grams/m\S\2 SV(Teich) 58.9 ml SI(Teich) 26.8 ml/m\S\2 SV(cubed) 74.0 ml SI(cubed) 33.6 ml/m\S\2 Ao root diam 2.5 cm Ao root area 4.9 cm\S\2 LA dimension 3.4 cm LA/Ao 1.4 LVOT diam 2.0 cm LVOT area 3.2 cm\S\2 Doppler Measurements and Calculations MV E max kenisha 90.6 cm/sec MV A max kenisha 110.0 cm/sec MV E/A 0.82 MV P1/2t max kenisha 90.6 cm/sec MV P1/2t 117.7 msec MVA(P1/2t) 1.9 cm\S\2 MV dec slope 225.4 cm/sec\S\2 MV dec time 0.33 sec Ao V2 max 172.3 cm/sec Ao max PG 11.9 mmHg Ao max PG (full) 7.8 mmHg PIERO(V,A) 1.9 cm\S\2 PIERO(V,D) 1.9 cm\S\2 LV V1 max PG 4.1 mmHg LV V1 max 100.8 cm/sec MR max kenisha 450.9 cm/sec MR max PG 81.3 mmHg PA V2 max 109.6 cm/sec PA max PG 4.8 mmHg
--- NOTE | 2017-10-07 14:27 | Progress Note ---
Subjective Date of Service: Oct 07, 2017. Subjective pt states she is no longer confused, her family is at the bedside and reconfirms this, likely her confusion was due to the fever, she remains with a cough and on oxygen Problem List Medical Problems: (1) Elevated troponin Status: Acute (2) Hypoxemia Status: Acute (3) Influenza A Status: Acute (4) Pneumonia Status: Acute Review of Systems Constitutional: + weakness, + fatigue, No fever, No chills Respiratory: + cough, + shortness of breath, + dyspnea on exertion, No sputum, No dyspnea at rest Cardiac: No chest pain, No edema Abdomen: No pain, No nausea, No vomiting, No diarrhea Objective Vital Signs Date Time Temp Pulse Resp B/P (MAP) Pulse Ox O2 Delivery O2 Flow Rate FiO2 10/07/17 12:54 36.9 57 18 131/62 (85) 95 10/07/17 12:00 Nasal Cannula 3.0 10/07/17 08:16 36.8 62 18 142/65 (90) 93 10/07/17 08:00 Nasal Cannula 3.0 10/07/17 07:11 60 18 94 Nasal Cannula 3.0 10/07/17 04:24 36.9 59 23 101/50 (67) 95 Nasal Cannula 3.5 10/07/17 04:00 Nasal Cannula 4.0 10/07/17 02:17 62 98 Nasal Cannula 3.0 10/07/17 01:05 36.8 64 16 119/48 94 Nasal Cannula 4.0 10/07/17 00:47 36.7 69 16 124/58 95 10/07/17 00:13 69 16 124/58 95 Nasal Cannula 4.0 10/06/17 23:10 38.6 72 21 148/66 95 Nasal Cannula 4.0 10/06/17 22:02 82 24 166/79 95 Room Air 4.0 10/06/17 21:59 75 10/06/17 21:37 39.4 83 28 168/82 86 Room Air 10/06/17 21:25 39.2 87 20 162/78 90 Room Air Physical Exam General Appearance: WD/WN, + moderate distress Eyes: + pertinent finding (subconjunctival hemorrhage) Neck: supple, no JVD Respiratory/Chest: chest non-tender, + respiratory distress (mild), + decreased breath sounds Cardiovascular: regular rate, rhythm, no murmur Abdomen: normal bowel sounds, non tender, soft Extremities: no pedal edema, no calf tenderness Neurologic/Psychiatric: alert, oriented x 3 Laboratory Results Last 24 Hours Test 10/06/17 21:45 10/06/17 21:52 10/06/17 22:00 10/06/17 22:05 Influenza Type A Antigen POS for Influ A Influenza Type B Antigen Neg for Influ B White Blood Count 10.42 K/uL Red Blood Count 4.02 M/uL Hemoglobin 13.0 g/dL Hematocrit 37.6 % Mean Corpuscular Volume 93.5 fL Mean Corpuscular Hemoglobin 32.3 pg Mean Corpuscular Hemoglobin Concent 34.6 g/dl Platelet Count 242 K/uL Mean Platelet Volume 9.7 fL Neutrophils (%) (Auto) 77.4 % Lymphocytes (%) (Auto) 9.6 % Monocytes (%) (Auto) 12.1 % Eosinophils (%) (Auto) 0.3 % Basophils (%) (Auto) 0.3 % Neutrophils # (Auto) 8.07 K/uL Lymphocytes # (Auto) 1.00 K/uL Monocytes # (Auto) 1.26 K/uL Eosinophils # (Auto) 0.03 K/uL Basophils # (Auto) 0.03 K/uL RDW Standard Deviation 44.4 fL RDW Coefficient of Variation 13.0 % Immature Granulocyte % (Auto) 0.3 % Immature Granulocyte # (Auto) 0.03 K/uL Prothrombin Time 11.4 SECONDS Prothromb Time International Ratio 1.1 Activated Partial Thromboplast Time 27.7 SECONDS Partial Thromboplastin Ratio 1.1 Sodium Level 135 mmol/L Potassium Level 3.4 mmol/L Chloride Level 97 mmol/L Carbon Dioxide Level 32 mmol/L Anion Gap 6.0 mmol/L 16.0 mmol/L Blood Urea Nitrogen 20 mg/dl Creatinine 1.56 mg/dl Est Creatinine Clear Calc Drug Dose 39.5 ml/min Estimated GFR () 37.0 Estimated GFR (Non- 31.9 BUN/Creatinine Ratio 12.9 Random Glucose 143 mg/dl Calcium Level 9.0 mg/dl Magnesium Level 1.8 mg/dl Total Bilirubin 0.4 mg/dl Aspartate Amino Transf (AST/SGOT) 27 U/L Alanine Aminotransferase (ALT/SGPT) 18 U/L Alkaline Phosphatase 101 U/L Total Creatine Kinase 475 U/L Creatine Kinase MB 1.4 ng/ml Creatine Kinase MB Ratio 0.3 Troponin I 0.129 ng/ml Total Protein 8.1 gm/dl Albumin 3.0 gm/dl Globulin 5.1 gm/dl Albumin/Globulin Ratio 0.6 Thyroid Stimulating Hormone (TSH) 0.479 uIu/ml Bedside Lactic Acid Venous 1.27 mmol/L Bedside Hemoglobin 12.2 g/dl Bedside Hematocrit 36 % Bedside Sodium 137 mEq/L Bedside Potassium 3.5 mEq/L Bedside Chloride 95 mEq/L Bedside Total CO2 31 mEq/l Bedside Blood Urea Nitrogen 19 mg/dl Bedside Creatinine 1.5 mg/dl Bedside Glucose (other) 147 mg/dl Bedside Ionized Calcium (Jayne) 1.13 mmol/l Test 10/06/17 22:13 10/06/17 22:45 10/07/17 01:52 10/07/17 04:14 Bedside Troponin I 0.090 ng/ml Urine Color YELLOW Urine Appearance CLEAR Urine pH 5.0 Urine Specific [place] 1.014 Urine Protein NEG Urine Glucose (UA) NEG Urine Ketones NEG Urine Occult Blood 2+ Urine Nitrite NEG Urine Bilirubin NEG Urine Urobilinogen NEG Urine Leukocyte Esterase NEG Urine WBC (Auto) 1-5 /hpf Urine RBC (Auto) 5-10 /hpf Urine Hyaline Casts (Auto) 1-5 /lpf Urine Epithelial Cells (Auto) 0-5 /lpf Urine Bacteria (Auto) NEG Bedside Glucose 202 mg/dl White Blood Count 9.44 K/uL Red Blood Count 3.68 M/uL Hemoglobin 11.7 g/dL Hematocrit 34.6 % Mean Corpuscular Volume 94.0 fL Mean Corpuscular Hemoglobin 31.8 pg Mean Corpuscular Hemoglobin Concent 33.8 g/dl RDW Standard Deviation 45.1 fL RDW Coefficient of Variation 13.1 % Platelet Count 209 K/uL Mean Platelet Volume 9.6 fL Sodium Level 136 mmol/L Potassium Level 3.6 mmol/L Chloride Level 98 mmol/L Carbon Dioxide Level 30 mmol/L Anion Gap 8.0 mmol/L Blood Urea Nitrogen 24 mg/dl Creatinine 1.75 mg/dl Est Creatinine Clear Calc Drug Dose 34.6 ml/min Estimated GFR () 32.2 Estimated GFR (Non- 27.8 BUN/Creatinine Ratio 13.6 Random Glucose 211 mg/dl Calcium Level 8.8 mg/dl Troponin I 0.186 ng/ml Test 10/07/17 06:30 10/07/17 07:51 10/07/17 10:54 Bedside Glucose 196 mg/dl 216 mg/dl Troponin I 0.129 ng/ml Assessment and Plan 77 y/o F hypoxic and febrile on presentation to the ER. Initial labs reveal an elevated troponin . A rapid flu prove (+) for influenza A. suggested influenza pneumonia and tamiflu was initiated Sirs, from influenza pneumonia, Fever, hypoxia - Influ A + , Levaquin was given one dose. Duonebs, PRN Xopenex and an 02 protocol provided. Encephalopathy secondary to Sirs and fever-resolved CHF disproved by ECHO, clinically remains clinically euvolemic CKD III - baseline creatinine is not known - renal dosing of meds CAD - troponin is elevated -echo shows no RWMA, trend is not significant, influenced by renal disease, maybe supply demand mismatch, recommend stress in future once recovers from infectious process DM - placed on SS conjunctivitis and subconjunctival hemorrhage, continue supportive care and cipro ophthalmologic gtts Full code - Heparin prophylaxis
[2017-10-07] MEDS: CIPROFLOXACIN HCL 0.3% OP SOLN 2.5 ML BTL OPR SCH ×2 (17:12→21:38)
[2017-10-07] MEDS ORDERED: RISPERIDONE 1 MG TAB PO SCH (21:00)
[2017-10-07] MEDS ORDERED: INSULIN GLARGINE SOLOSTAR 100 UNITS/ML 3 ML PEN SC SCH (21:00)
[2017-10-07] MEDS ORDERED: NURSING VERBAL MED ORDER SCH (21:15)
[2017-10-07] MEDS ORDERED: NEOMYCIN/POLYMYX/BACITR OINT 15 GM TUBE EXT PRN (21:30)
[2017-10-07] MEDS ORDERED: NURSING DECISION MEDICATION ORDER SCH (21:30)
[2017-10-07] MEDS: GUAIFENESIN 600 MG TABCR PO SCH (21:48)
[2017-10-08] VITALS (9 sets, daily range): BP systolic 116–149; BP diastolic 53–83; PULSE 56–76; TEMP 36.8–37.4; O2SAT 93–99
[2017-10-08] MEDS: NITROGLYCERIN OINT 2% 1GM PACKET EXT SCH ×2 (00:08→06:00)
[2017-10-08] MEDS: ALBUT/IPRATROP 3MG/0.5MG NEB 3 ML VIAL INH SCH ×2 (01:47→07:09)
[2017-10-08] MEDS: HEPARIN SOD 5000 UNIT/0.5 ML CARP SQ SCH (05:52)
[2017-10-08 06:31] LABS: HEMATOCRIT 36.4 % (37-47); MEAN CORPUSCULAR HEMOGLOBIN 31.6 pg (25-34); MEAN CORPUSCULAR HGB CONC 33.2 g/dl (32-36); MEAN PLATELET VOLUME 9.9 fL (7.4-10.4); PLATELET COUNT 238 K/uL (130-400); RED BLOOD COUNT 3.83 M/uL (4.2-5.4); WHITE BLOOD COUNT 7.58 K/uL (4.8-10.8)
[2017-10-08 06:55] LABS: BUN/CREATININE RATIO 14.8 (10-20); CALCIUM 8.8 mg/dl (8.5-10.1); CREATININE 1.72 mg/dl (0.60-1.20); POTASSIUM 3.3 mmol/L (3.5-5.1)
[2017-10-08] MEDS: INSULIN ASPART 100 UNITS/ML 3 ML PEN SC SCH ×2 (07:45→12:07)
[2017-10-08] MEDS: CIPROFLOXACIN HCL 0.3% OP SOLN 2.5 ML BTL OPR SCH (08:22)
[2017-10-08] MEDS: CARVEDILOL 25 MG TAB PO SCH (08:23)
[2017-10-08] MEDS: PANTOprazole SOD 40 MG TAB PO SCH (08:23)
[2017-10-08] MEDS: OMEGA-3 (PURIFIED FISH OIL) 1 GM CAP PO SCH (08:23)
[2017-10-08] MEDS: LOSARTAN POTASSIUM 50 MG TAB PO SCH (08:23)
[2017-10-08] MEDS: FUROSEMIDE 40 MG TAB PO SCH (08:23)
[2017-10-08] MEDS: ASPIRIN 81 MG ECTAB PO SCH (08:24)
[2017-10-08] MEDS: CYANOCOBALAMIN 2,500 MCG SUBL TAB PO SCH (08:24)
[2017-10-08] MEDS: GUAIFENESIN 600 MG TABCR PO SCH (08:24)
[2017-10-08] MEDS: OSELTAMIVIR PHOSPHATE SUSP 30 MG/5 ML UDP PO SCH (08:24)
[2017-10-08] MEDS: DULOXETINE HCL 60 MG CAP PO SCH (08:24)
[2017-10-08] MEDS ORDERED: POTASSIUM CHLORIDE 20 MEQ TABCR PO SCH (09:30)
[2017-10-08] MEDS ORDERED: NITROGLYCERIN 2% OINTMENT 30GM TUBE EXT SCH (12:00)
[2017-10-08] MEDS ORDERED: IPRASOL4 INH (12:16)
[2017-10-08] MEDS ORDERED: TMFUDL30 PO (12:16)
[2017-10-08] MEDS ORDERED: CLXOPS3 OPR (12:16)
[2017-10-08] MEDS ORDERED: LEVO-459 PO (12:16)
--- NOTE | 2017-10-08 12:19 | Discharge Instructions ---
Discharge Instructions Date of Service Oct 08, 2017. Admission Reason for Admission: Chf Exacerbation, Fever Discharge Discharge Diagnosis / Problem: INFLUENZA PNEUMONIA, REACTIVE AIRWAY, POSSIBLE BACTERIAL PNEUMONIA Discharge Goals Goal(s): Diagnostic testing, Therapeutic intervention Activity Recommendations Activity Limitations: as noted below Lifting Limitations: gradually increase as tolerated . Current Hospital Diet Patient's current hospital diet: AHA Diet (Heart Healthy), Diabetes Type 2 Diet Discharge Diet Recommended Diet: Diabetes Type 2 Diet Pending Studies Studies pending at discharge: no Laboratory Results Hemoglobin A1c Test 08/07/17 10:11 Range/Units Estimated Average Glucose 151 mg/dl Hemoglobin A1c 6.9 H 4.5-5.6 % Medical Emergencies . Who to Call and When: Medical Emergencies: If at any time you feel your situation is an emergency, please call 911 immediately. . Non-Emergent Contact Non-Emergency issues call your: Primary Care Provider Call Non-Emergent contact if: temperature is above 101, your pain is unusual for you . . "Provider Documentation" section prepared by Carlos Shetty. . Medical Director/Head Team Physician Recommendations Medical Director/Head Team Physician Recommendations: REST AND RECUPERATE. FINISH ALL YOUR FLU MEDICINE AND ALSO THE ANTIBIOTICS. THE ANTIBIOTICS ARE CONTINUED IN CASE YOU HAVE A SECONDARY, BACTERIAL PNEUMONIA. 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
[2017-10-08] MEDS ORDERED: ALBUTEROL HFA 8 GM INHALER INH SCH (12:30)
--- NOTE | 2017-10-08 17:09 | Discharge Summary ---
Discharge Summary Date of Service Oct 08, 2017. Discharge Summary Admission Date: Oct 07, 2017 at 00:21 Discharge Date: Oct 08, 2017 Discharge Disposition: Home Principal Diagnosis: influenza pneumonia, abnormal bone marrow on CT Immunizations: Have You Had Influenza Vaccine: No History of Tetanus Vaccine?: No History of Pneumococcal: Yes History of Hepatitis B Vaccine: No Medication Reconciliation New Medications: Levofloxacin (Levaquin) 500 Mg Tab 500 MG PO Q48H, #8 DOSE Ciprofloxacin HCl (Ciprofloxacin HCl) 37 Drops/2.5 Ml Soln 2 DROPS OPR BID, #1 BTL Ipratropium-Albuterol (Duoneb) 3 Ml Nebu 3 ML INH Q6R, #1 INHALER 2 Refills Oseltamivir Phosphate (Tamiflu) 6 Mg/Ml Karly 30 MG PO BID, #7 DOSE Continued Medications: Aspirin (Aspirin Ec) 81 Mg Tab 81 MG PO DAILY Calcium Carbonate-Vitamin D (Calcium Plus Vitamin D) 1 Cap Cap 2 CAP PO DAILY Carvedilol (Coreg) 25 Mg Tab 25 MG PO BID, TAB Clonazepam (Klonopin) 0.5 Mg Tab 0.5 TAB PO HS PRN for Sleep, TAB Cyanocobalamin (B-12) 2,500 Mcg Tab 1 TAB PO DAILY Duloxetine Hcl (Cymbalta) 60 Mg Cap 60 MG PO DAILY, CAP Fish Oil (Lamar-3) 1 Ea Cap 1 CAP PO BID, CAP Furosemide (Lasix) 40 Mg Tab 40 MG PO BID, TAB Insulin Aspart (Novolog) 100 Units/Ml Inj 60-70 UNITS SC DAILY USE AT ALL MEALS FOR TOTAL DAILY DOSE OF 60-70 UNITS A DAY. Insulin Glargine (Toujeo Solostar) 300 Unit/Ml Inj 74 UNITS SC HS Losartan Potassium (Cozaar) 100 Mg Tab 100 MG PO DAILY, TAB Meclizine Hcl (Meclizine Hcl) 25 Mg Tab 0.5-1 TAB PO TID PRN for Dizziness or Vertigo, TAB Omeprazole (Prilosec) 20 Mg Capcr 20 MG PO DAILY, CAP Risperidone (Risperdal) 1 Mg Tab 1 MG PO HS, TAB Trazodone Hcl (Trazodone) 100 Mg Tab 100 MG PO HS PRN for Sleep, TAB Discharge Exam Review of Systems: Constitutional: No fever, No chills Respiratory: No cough, No sputum, No wheezing, No shortness of breath, No dyspnea on exertion Cardiovascular: No chest pain, No edema Abdomen: No pain, No nausea, No vomiting Physical Exam: General Appearance: + mild distress, + obese Neck: supple, no JVD Respiratory/Chest: chest non-tender, + decreased breath sounds (bases), + pertinent finding (coarse sounding breath sounds) Abdomen / GI: normal bowel sounds, non tender, soft Extremities: + pedal edema (trace) Neurologic/Psychiatric: alert, oriented x 3 Hospital Course 77 y/o F hypoxic and febrile on presentation to the ER. Initial labs reveal an elevated troponin . A rapid flu prove (+) for influenza A. suggested influenza pneumonia and tamiflu was initiated Sirs, from influenza pneumonia, Fever, hypoxia - Influ A + , Levaquin was given one dose will continue renal dose for 10 day total. Duonebs converted to combivent and given for home, is able to be titrated off oxgen but hovering in lower 90's. has second hand smoking history only Encephalopathy secondary to Sirs and fever-resolved CHF disproved by ECHO, clinically remains clinically euvolemic CKD III - baseline creatinine is not known - renal dosing of meds CAD - troponin is elevated -echo shows no RWMA, trend is not significant, influenced by renal disease, maybe supply demand mismatch, recommend stress in future once recovers from infectious process DM - resume her basal insulin as pre illness and reinforced diabetic diet conjunctivitis and subconjunctival hemorrhage, continue supportive care and cipro ophthalmologic gtts comments of bone marrow appearance on CT and some blast cell on diff( could be from illness) will make recommendation for outpt CBC and diff follow up once recovered Full code - Heparin prophylaxis Total Time Spent: Greater than 30 minutes This includes examination of the patient, discharge planning, medication reconciliation, and communication with other providers. Discharge Instructions Please refer to the electronic Patient Visit Report (Discharge Instructions) for additional information. Additional Copies To Honey Gonzalez M.D.
[2017-10-08] MEDS ORDERED: LEVOFLOXACIN / D5W 750 MG in PREMIXED IN D5W 150 ML IV SCH (22:00)
== END 2017-10-08 14:08 | disposition home or self-care (01) | DRG 193 ==
LOC: C.EDB 21:28 → C.2E 10-07 00:21 → ENRESERV 10-07 00:39
PROVIDERS: ADMIT Internal Medicine; ATTEND Internal Medicine
DX: J10.00 Influenza due to other identified influenza virus with unspecified type of pneumonia (principal); G93.40 Encephalopathy, unspecified; Z68.42 Body mass index [BMI] 45.0-49.9, adult; J10.1 Influenza due to other identified influenza virus with other respiratory manifestations; R09.02 Hypoxemia; R93.8 Abnormal findings on diagnostic imaging of other specified body structures; I50.9 Heart failure, unspecified; N18.3 Chronic kidney disease, stage 3 (moderate); I25.10 Atherosclerotic heart disease of native coronary artery without angina pectoris; E11.9 Type 2 diabetes mellitus without complications; H10.9 Unspecified conjunctivitis; H11.31 Conjunctival hemorrhage, right eye; E66.01 Morbid (severe) obesity due to excess calories; Z79.4 Long term (current) use of insulin; Z79.82 Long term (current) use of aspirin; Z79.899 Other long term (current) drug therapy; Z88.2 Allergy status to sulfonamides

== ENCOUNTER → 2017-10-17 | Outpatient (CLI) | payer BC ==
[~2017-10-17] MED LIST changes: -ANT25 PO; -ASPEC81 PO; +ASPI81TA28 PO; +CALCCAP7 PO; +CARV25TA2 PO; -CLTP PO; +CLXOPS3 OPR; -CRG25 PO; -CYAN100020 PO; +CYAN1TAB17 PO; -CYM/30 PO; -CZR50 PO; +DULO60CA44 PO; -INSDGI SC; +INSU1.2I SC; +IPRA-64 INH; +KLN/5 PO; -KLN1X PO; +LEVO-459 PO; +LOSA1TAB38 PO; +MECL1TAB42 PO; +NVLG SC; -NVLGI SC; -SIMV20TA2 PO; +TMFUDL30 PO; +TRAZ100T29 PO
[2017-10-17 17:13] LABS: BLOOD UREA NITROGEN 18 mg/dl (7-18); CALCIUM 9.4 mg/dl (8.5-10.1); CARBON DIOXIDE 34 mmol/L (21-32); CHOLESTEROL 173 mg/dl (0-200); CREATININE 1.44 mg/dl (0.60-1.20); GLUCOSE 151 mg/dl (70-99); POTASSIUM 4.1 mmol/L (3.5-5.1); SODIUM 139 mmol/L (136-145)
[2017-10-17 17:23] LABS: LDL CHOLESTEROL CALCULATED 89 mg/dl
== END | disposition home or self-care (01) ==
LOC: C.LAB1850 12:11
PROVIDERS: ATTEND Family Medicine
DX: I10 Essential (primary) hypertension (principal); E78.2 Mixed hyperlipidemia; I42.9 Cardiomyopathy, unspecified; E11.29 Type 2 diabetes mellitus with other diabetic kidney complication; E66.01 Morbid (severe) obesity due to excess calories

== ENCOUNTER → 2017-10-22 | Outpatient (CLI) | payer BC ==
[~2017-10-22] MED LIST changes: +CLON0.5T3 PO; -IPRA-64 INH; +IPRASOL4 INH; -KLN/5 PO
[2017-10-22 17:13] LABS: BASO % 0.5 %; BASO ABS # 0.04 K/uL (0-0.2); EOS % 3.3 %; EOS ABS # 0.27 K/uL (0-0.5); HEMATOCRIT 40.3 % (37-47); HEMOGLOBIN 13.6 g/dL (12.0-16.0); IG# 0.01 K/uL (0.00-0.02); LYMPH ABS # 2.26 K/uL (1.2-3.4); MEAN CELL VOLUME 95.5 fL (80-100); MEAN CORPUSCULAR HEMOGLOBIN 32.2 pg (25-34); MEAN CORPUSCULAR HGB CONC 33.7 g/dl (32-36); MEAN PLATELET VOLUME 10.3 fL (7.4-10.4); MONO ABS # 0.73 K/uL (0.11-0.59); NEUT % 59.1 %; NEUT ABS # 4.77 K/uL (1.4-6.5); PLATELET COUNT 271 K/uL (130-400); RED CELL DISTRIBUTION WIDTH CV 13.9 % (11.5-14.5); RED CELL DISTRIBUTION WIDTH SD 47.6 fL (36.4-46.3); WHITE BLOOD COUNT 8.08 K/uL (4.8-10.8)
== END | disposition home or self-care (01) ==
LOC: C.LABPVFM 15:21
PROVIDERS: ATTEND Family Medicine
DX: R93.8 Abnormal findings on diagnostic imaging of other specified body structures (principal); R79.89 Other specified abnormal findings of blood chemistry

== ENCOUNTER → 2017-12-19 | Outpatient (CLI) | payer BC ==
--- NOTE | 2017-12-20 13:55 | MAMMOGRAPHY REPORT ---
BILATERAL DIGITAL SCREENING MAMMOGRAM TOMOSYNTHESIS WITH CAD: 12/19/2017 TECHNIQUE: Breast tomosynthesis in addition to standard 2D mammography was performed. Current study was also evaluated with a Computer Aided Detection (CAD) system. COMPARISON: Comparison is made to exams dated: 09/13/2016 mammogram, 09/12/2015 mammogram, 09/08/2014 mammogram, 09/17/2013 mammogram, 07/23/2012 mammogram, and 07/25/2011 mammogram - [facility]. BREAST COMPOSITION: There are scattered areas of fibroglandular density in both breasts. FINDINGS: No suspicious masses, calcifications, or areas of architectural distortion are noted in ei ther breast. There has been no significant interval change compared to prior exams. IMPRESSION: ACR BI-RADS CATEGORY 1: NEGATIVE There is no mammographic evidence of malignancy. A 1 year screening mammogram is recommended. The pa tient will receive written notification of the results. Approximately 10% of breast cancers are not detected with mammography. A negative mammographic report should not delay biopsy if a clinically suggestive mass is present. Sarah Wilcox M.D. ah/:12/19/2017 15:18:19 Pay Station Attendant: May FELIZ)(Aditi), [facility] letter sent: Normal 1/2 BI-RADS Code: ACR BI-RADS Category 1: Negative
== END | disposition home or self-care (01) ==
LOC: C.MAMM 14:51
PROVIDERS: ATTEND Obstetrics & Gynecology
DX: Z12.31 Encounter for screening mammogram for malignant neoplasm of breast (principal)

== ENCOUNTER 2018-01-10 12:55 | Emergency (ER) | payer BC ==
[2018-01-10 13:01] VITALS: TEMP 36.7; Ht 162.6 cm
[2018-01-10] MEDS ORDERED: ONDANSETRON INJ 2 MG/ML 2 ML VIAL IV STA (13:16)
[2018-01-10] MEDS ORDERED: MoRPHine SULFATE 2 MG/ML CARP IV STA ×2 (13:16→14:23)
--- NOTE | 2018-01-10 13:41 | DIAGNOSTIC IMAGING REPORT ---
CHEST ONE VIEW PORTABLE CLINICAL HISTORY: CHEST PAIN COMPARISON STUDY: Chest CT October 07, 2017. FINDINGS: Lung volumes are normal. There is no pneumothorax or pleural effusion. There is no evidence for pulmonary edema. Slight interstitial prominence is unchanged. Mild cardiomegaly is unchanged. Patient is rotated. IMPRESSION: No acute cardiopulmonary findings. No change in appearance of the chest. Electronically signed by: João Hay M.D. 01/10/2018 1:40 PM Dictated Date/Time: 01/10/2018 1:34 PM
[2018-01-10 13:48] LABS: BASO % 0.3 %; BASO ABS # 0.02 K/uL (0-0.2); EOS % 2.5 %; EOS ABS # 0.17 K/uL (0-0.5); HEMATOCRIT 40.1 % (37-47); IG# 0.01 K/uL (0.00-0.02); LYMPH % 19.5 %; LYMPH ABS # 1.34 K/uL (1.2-3.4); MEAN CELL VOLUME 92.8 fL (80-100); MEAN CORPUSCULAR HEMOGLOBIN 32.4 pg (25-34); MEAN CORPUSCULAR HGB CONC 34.9 g/dl (32-36); MEAN PLATELET VOLUME 10.3 fL (7.4-10.4); MONO ABS # 0.41 K/uL (0.11-0.59); NEUT % 71.6 %; NEUT ABS # 4.92 K/uL (1.4-6.5); PLATELET COUNT 215 K/uL (130-400); RED CELL DISTRIBUTION WIDTH CV 13.6 % (11.5-14.5); RED CELL DISTRIBUTION WIDTH SD 46.2 fL (36.4-46.3); WHITE BLOOD COUNT 6.87 K/uL (4.8-10.8)
--- NOTE | 2018-01-10 13:56 | EMERGENCY ROOM VISIT NOTE ---
History Report prepared by Olive: Glenna Fowler Under the Supervision of: Dr. Wero Gary M.D. First contact with patient: 13:05 Chief Complaint: SHOULDER PAIN Stated Complaint: LEFT SIDE & BACK PAIN History of Present Illness The patient is a 77 year old female who presents to the Emergency Room with complaints of worsening left sided back pain beginning two weeks ago. She describes her pain as stabbing. The patient states her pain worsens when she moves. She also reports shortness of breath and denies any fever, urinary burning, or calf pain. She denies any history of blood clots. She denies any recent falls or trauma. The patient has a history of diabetes and LBBB. The patient is not on a blood thinner. Source of History: patient Onset: two weeks ago Position: back (upper) Quality: stabbing Timing: worsening Associated Symptoms: + SOB, + back pain, No fevers, No urinary symptoms Review of Systems See HPI for pertinent positives & negatives. A total of 10 systems reviewed and were otherwise negative. Past Medical & Surgical Medical Problems: (1) CHF exacerbation (2) Fever Old medical records were reviewed. Nurse's notes were reviewed and I agree with. Family History Patient reports no known family medical history. Social History Smoking Status: Never Smoker Drug Use: none Marital Status: Housing Status: lives with significant other Occupation Status: retired Current/Historical Medications Scheduled Aspirin (Aspirin Ec), 81 MG PO DAILY Calcium Carbonate-Vitamin D (Calcium Plus Vitamin D), 2 CAP PO DAILY Carvedilol (Coreg), 25 MG PO BID Ciprofloxacin HCl (Ciprofloxacin HCl), 2 DROPS OPR BID Cyanocobalamin (B-12), 1 TAB PO DAILY Duloxetine Hcl (Cymbalta), 60 MG PO DAILY Fish Oil (Lincoln-3), 1 CAP PO BID Furosemide (Lasix), 40 MG PO BID Insulin Aspart (Novolog), 60-70 UNITS SC DAILY Insulin Glargine (Toujeo Solostar), 74 UNITS SC HS Ipratropium-Albuterol (Duoneb), 3 ML INH Q6R Levofloxacin (Levaquin), 500 MG PO Q48H Losartan Potassium (Cozaar), 100 MG PO DAILY Omeprazole (Prilosec), 20 MG PO DAILY Oseltamivir Phosphate (Tamiflu), 30 MG PO BID Risperidone (Risperdal), 1 MG PO HS Scheduled PRN Clonazepam (Klonopin), 0.5 TAB PO HS PRN for Sleep Meclizine Hcl (Meclizine Hcl), 0.5-1 TAB PO TID PRN for Dizziness or Vertigo Trazodone Hcl (Trazodone), 100 MG PO HS PRN for Sleep Allergies Coded Allergies: Sulfa Antibiotics (Verified Allergy, Unknown, ., 01/10/18) Physical Exam Vital Signs Date Time Temp Pulse Resp B/P (MAP) Pulse Ox O2 Delivery O2 Flow Rate FiO2 01/10/18 13:39 63 18 122/69 94 Room Air 01/10/18 13:15 66 01/10/18 13:01 36.7 65 18 135/78 94 Room Air Physical Exam General: Non-ill appearing older female in no acute distress. HEENT: Normal cephalic atraumatic. Pupils are equal round and reactive to light. Extraocular movements are intact. Oropharynx is pink with moist mucous membranes. No swelling of the mouth lips or tongue. Neck: Supple with a midline trachea. No meningeal signs or stiffness, no JVD or bruits. No Stridor. Chest: Clear to auscultation bilaterally. No wheezes or rhonchi. No increased work of breathing. Heart: regular rate and rhythm. Abdomen: Soft nontender, nondistended without rebound guarding or rigidity. Extremities: Pain in left posterior shoulder, no rash pain worsens with movement. No cyanosis clubbing or edema. No calf tenderness or assymetry Spine/Back. Non tender to palpation. No CVA tenderness Skin: Good turgor without rashes. Neurologic exam: Cranial nerves two through 12 are intact. Motor and sensation are intact and symmetrical throughout. Medical Decision & Procedures ER Provider Diagnostic Interpretation: Radiology results as stated below per my review and radiologist interpretation: CHEST ONE VIEW PORTABLE FINDINGS: Lung volumes are normal. There is no pneumothorax or pleural effusion. There is no evidence for pulmonary edema. Slight interstitial prominence is unchanged. Mild cardiomegaly is unchanged. Patient is rotated. IMPRESSION: No acute cardiopulmonary findings. No change in appearance of the chest. Electronically signed by: João Hay M.D. Laboratory Results 01/10/18 13:30 Red Blood Count 4.32, Mean Corpuscular Volume 92.8, Mean Corpuscular Hemoglobin 32.4, Mean Corpuscular Hemoglobin Concent 34.9, Mean Platelet Volume 10.3, Neutrophils (%) (Auto) 71.6, Lymphocytes (%) (Auto) 19.5, Monocytes (%) (Auto) 6.0, Eosinophils (%) (Auto) 2.5, Basophils (%) (Auto) 0.3, Neutrophils # (Auto) 4.92, Lymphocytes # (Auto) 1.34, Monocytes # (Auto) 0.41, Eosinophils # (Auto) 0.17, Basophils # (Auto) 0.02 01/10/18 13:30 Test 01/10/18 13:30 White Blood Count 6.87 K/uL (4.8-10.8) Red Blood Count 4.32 M/uL (4.2-5.4) Hemoglobin 14.0 g/dL (12.0-16.0) Hematocrit 40.1 % (37-47) Mean Corpuscular Volume 92.8 fL (80-100) Mean Corpuscular Hemoglobin 32.4 pg (25-34) Mean Corpuscular Hemoglobin Concent 34.9 g/dl (32-36) Platelet Count 215 K/uL (130-400) Mean Platelet Volume 10.3 fL (7.4-10.4) Neutrophils (%) (Auto) 71.6 % Lymphocytes (%) (Auto) 19.5 % Monocytes (%) (Auto) 6.0 % Eosinophils (%) (Auto) 2.5 % Basophils (%) (Auto) 0.3 % Neutrophils # (Auto) 4.92 K/uL (1.4-6.5) Lymphocytes # (Auto) 1.34 K/uL (1.2-3.4) Monocytes # (Auto) 0.41 K/uL (0.11-0.59) Eosinophils # (Auto) 0.17 K/uL (0-0.5) Basophils # (Auto) 0.02 K/uL (0-0.2) RDW Standard Deviation 46.2 fL (36.4-46.3) RDW Coefficient of Variation 13.6 % (11.5-14.5) Immature Granulocyte % (Auto) 0.1 % Immature Granulocyte # (Auto) 0.01 K/uL (0.00-0.02) Prothrombin Time 10.5 SECONDS (9.0-12.0) Prothromb Time International Ratio 1.0 (0.9-1.1) Activated Partial Thromboplast Time 21.3 SECONDS (21.0-31.0) Partial Thromboplastin Ratio 0.8 D-Dimer 1380 ug/L FEU (0-500) Anion Gap 8.0 mmol/L (3-11) Estimated GFR () 31.6 Estimated GFR (Non- 27.2 BUN/Creatinine Ratio 13.8 (10-20) Calcium Level 9.4 mg/dl (8.5-10.1) Total Bilirubin 0.4 mg/dl (0.2-1) Direct Bilirubin 0.1 mg/dl (0-0.2) Aspartate Amino Transf (AST/SGOT) 9 U/L (15-37) Alanine Aminotransferase (ALT/SGPT) 13 U/L (12-78) Alkaline Phosphatase 121 U/L (45-117) Total Creatine Kinase 52 U/L (26-192) Creatine Kinase MB 0.6 ng/ml (0.5-3.6) Creatine Kinase MB Ratio 1.2 (0-3.0) Troponin I < 0.015 ng/ml (0-0.045) Total Protein 7.8 gm/dl (6.4-8.2) Albumin 3.1 gm/dl (3.4-5.0) Lipase 109 U/L (73-393) Laboratory studies as stated above per my review. Medications Administered Medications (Trade) Dose Ordered Sig/Mindi Route Start Time Stop Time Status Last Admin Dose Admin Ondansetron HCl (Zofran Inj) 4 mg NOW STAT IV 01/10/18 13:16 01/10/18 13:19 DC 01/10/18 13:40 4 MG Morphine Sulfate (MoRPHine SULFATE INJ) 2 mg NOW STAT IV 01/10/18 13:16 01/10/18 13:19 DC 01/10/18 13:40 2 MG Morphine Sulfate (MoRPHine SULFATE INJ) 2 mg NOW STAT IV 01/10/18 14:23 01/10/18 14:26 DC 01/10/18 14:57 2 MG Sodium Chloride 1,000 ml @ 999 mls/hr Q1H1M STAT IV 01/10/18 14:25 01/10/18 15:25 DC 01/10/18 14:57 999 MLS/HR ECG Per My Interpretation Indication: back/shoulder pain Rate (beats per minute): 66 Rhythm: normal sinus Findings: no acute ischemic change, no ectopy Comparison ECG Date: 09/26/17 Change: no significant change ED Course 1306: Past medical records reviewed. The patient was evaluated in room B12B, and a complete history and physical examination were performed. 1316: Ordered Morphine Sulfate 2 mg IV, Zofran Inj 4 mg IV. 1423: Ordered Morphine Sulfate 2 mg IV. 1425: Ordered Sodium Chloride 1000 ml @ 999 mls/hr IV 1427: The patient is agreeable to CT scan. Medical Decision Differential diagnoses: Musculoskeletal pain, pneumothorax, PE, CHF, cardiac disease, renal disease, electrolyte and metabolic abnormality This patient comes in as described above. She is placed in room B12. She is here for treatment evaluation of pain in her left posterior back it is above her flank. It is reproducible on palpation and movement she says it hurts when she breathes as well. She has nothing to suggest shingles has been on for 2 weeks and there is no rash she has had no fever. There is no chest pain. Nothing to suggest infection. EKG was obtained shows normal sinus rhythm with left bundle branch block. This is old. Chest x-ray was unremarkable. Multiple blood testing was obtained. she does have a mildly elevated d-dimer. Cardiac biomarkers are not elevated. Her symptoms are atypical for cardiac and reproducible and despite having 2 weeks of symptoms has no change in her enzymes. This makes cardiac disease highly unlikely. She does have some mild to moderate renal insufficiency with a creatinine of 1.7. This is about baseline for her. I explained the risk and benefits of doing a CAT scan. This could include can kidney damage or reaction. She freely consents. The CAT scan was unremarkable. No evidence of PE or other intrathoracic abnormalities. I think this most likely is musculoskeletal. It could be related to her spine or disc disease as well. I will have her use primary acetaminophen/ Tylenol but do not exceed the recommended dosages. She can also use a small amount of ibuprofen intermittently but to try to limit that given her renal insufficiency. She should rest and drink plenty of fluids return if: increasing pain, fever or chills, worsening of symptoms, any new problems or concerns. Medication Reconcilliation Current Medication List: was personally reviewed by me Blood Pressure Screening Patient's blood pressure: Normal blood pressure Impression Primary Impression: Thoracic back pain Scribe Attestation The scribe's documentation has been prepared under my direction and personally reviewed by me in its entirety. I confirm that the note above accurately reflects all work, treatment, procedures, and medical decision making performed by me. Departure Information Referrals Honey Gonzalez M.D. (PCP) Patient Instructions [facility]
[2018-01-10 13:58] LABS: PTT PATIENT 21.3 SECONDS (21.0-31.0)
[2018-01-10 14:06] LABS: ALBUMIN 3.1 gm/dl (3.4-5.0); ALT/SGPT 13 U/L (12-78); AST/SGOT 9 U/L (15-37); BLOOD UREA NITROGEN 24 mg/dl (7-18); CALCIUM 9.4 mg/dl (8.5-10.1); CARBON DIOXIDE 30 mmol/L (21-32); CREATININE 1.78 mg/dl (0.60-1.20); GLUCOSE 200 mg/dl (70-99); LIPASE 109 U/L (73-393); POTASSIUM 3.8 mmol/L (3.5-5.1); SODIUM 139 mmol/L (136-145)
[2018-01-10 14:11] LABS: ALKALINE PHOSPHATASE 121 U/L (45-117); CKMB 0.6 ng/ml (0.5-3.6); TOTAL PROTEIN 7.8 gm/dl (6.4-8.2)
[2018-01-10] MEDS ORDERED: SODIUM CHLORIDE 0.9% 1000ML 1,000 ML IV STA (14:25)
[2018-01-10] MEDS ORDERED: OPTIRAY 320 IV PRN (14:30)
--- NOTE | 2018-01-10 14:58 | DIAGNOSTIC IMAGING REPORT ---
(CHEST FOR PE) ANGIO WITH CLINICAL HISTORY: 77 years-old Female presenting with chest pain, clinical concern for pulmonary embolus or aortic pathology. TECHNIQUE: Multidetector CT angiography of the chest was performed after administration of intravenous contrast. 3-D volumetric and/or maximum intensity projection (MIP) images were subsequently reconstructed for review. IV contrast: 109 mL of Optiray 320. A dose lowering technique was used consistent with the principles of ALARA (as low as reasonably achievable). COMPARISON: 10/07/2017. CT DOSE (mGy.cm): The estimated cumulative dose is 547.43 mGy.cm. FINDINGS: [employer] topogram: Partially visualized lumbar fusion hardware. Pulmonary vasculature: The study is suboptimal for the assessment of the pulmonary vascular tree secondary to timing of the contrast bolus and respiratory motion artifact. Allowing for limited image quality, no central filling defect to suggest pulmonary embolus. Main pulmonary artery is not enlarged. No flattening of the interventricular septum. No intracardiac filling defect. No reflux of contrast into the hepatic veins. Remaining chest: On soft tissue windows, multinodular thyroid. No axillary, supraclavicular, hilar, or mediastinal lymphadenopathy. Atherosclerosis of the aorta. Mild multichamber enlargement of the heart. Minimal mitral annular calcification. No pericardial or pleural effusion. Upper abdomen normal. On lung windows, minimal dependent changes likely atelectasis. No other focal nodule or infiltrate. Airways patent. On bone windows, degenerative changes of the spine. IMPRESSION: 1. Allowing for suboptimal image quality, no evidence of pulmonary embolus. No acute intrathoracic pathology. Electronically signed by: Karan Love M.D. 01/10/2018 2:57 PM Dictated Date/Time: 01/10/2018 2:53 PM
[2018-01-10 16:43] VITALS: BP 137/70; PULSE 56; O2SAT 96
== END 2018-01-10 16:25 | disposition home or self-care (01) ==
LOC: C.EDB 12:56
DX: M54.6 Pain in thoracic spine (principal); N28.9 Disorder of kidney and ureter, unspecified; R79.1 Abnormal coagulation profile; M25.512 Pain in left shoulder; I44.7 Left bundle-branch block, unspecified; E11.9 Type 2 diabetes mellitus without complications; I50.9 Heart failure, unspecified; Z79.82 Long term (current) use of aspirin; Z79.4 Long term (current) use of insulin; Z88.2 Allergy status to sulfonamides

== ENCOUNTER → 2018-05-22 | Outpatient (CLI) | payer BC ==
[~2018-05-22] MED LIST changes: -CLON0.5T3 PO; +IPRA-64 INH; -IPRASOL4 INH; +KLN/5 PO
[2018-05-23 06:05] LABS: HEMOGLOBIN A1C 7.2 % (4.5-5.6)
== END | disposition home or self-care (01) ==
LOC: C.LAB1850 16:17
PROVIDERS: ATTEND Nurse Practitioner Family
DX: E11.29 Type 2 diabetes mellitus with other diabetic kidney complication (principal)

== ENCOUNTER 2022-02-13 12:59 | Inpatient (IN) ==
--- NOTE | 2022-02-13 13:39 | XRay Report ---
SINGLE VIEW CHEST CLINICAL HISTORY: Dyspnea. FINDINGS: An AP, portable, upright chest radiograph is compared to study dated 02/09/2022. Correlation is made with chest CT dated 01/10/2018. The examination is degraded by portable technique and large b cierra habitus. The heart is top normal for projection. Mild pulmonary vascular congestion persists. Air space opacities are noted at the left lung base. No pneumothorax is seen. The skeletal structures are osteopenic. The bony thorax is grossly intact. Degenerative change is noted in the shoulders and tho racic spine. IMPRESSION: 1. Mild pulmonary vascular congestion persists. 2. Airspace opacities are seen at the left lung base. This could represent atelectasis versus a mild infectious/inflammatory pneumonitis. Clinical correlation will be required. ACT 112: Negative or not required by law. Electronically signed by: Hang Bush M.D. 02/13/2022 1:37 PM
[2022-02-13 14:07] LABS: Basophils # (auto) 0.02 K/uL (0-0.2); Basophils % (auto) 0.2 %; Eosinophils # (auto) 0.25 K/uL (0-0.5); Eosinophils % (auto) 2.9 %; Hematocrit (blood only) 42.7 % (37-47); Hemoglobin 14.2 g/dL (12.0-16.0); Immature Granulocytes # (auto) 0.01 K/uL (0.00-0.02); Immature Granulocytes % (auto) 0.1 %; Lymphocytes # (auto) 2.34 K/uL (1.2-3.4); Lymphocytes % (auto) 27.1 %; Mean Corpuscular Hemoglobin 31.8 pg (25-34); Mean Corpuscular Hgb Conc 33.3 g/dL (32-36); Mean Corpuscular Volume 95.5 fL (80-100); Mean Platelet Volume 10.5 fL (7.4-10.4); Monocytes # (auto) 0.39 K/uL (0.11-0.59); Monocytes % (auto) 4.5 %; Neutrophils # (auto) 5.63 K/uL (1.4-6.5); Neutrophils % (auto) 65.2 %; Platelet Count 249 K/uL (130-400); RDW Coefficient of Variation 13.5 % (11.5-14.5); RDW Standard Deviation 46.4 fL (36.4-46.3); Red Blood Count 4.47 M/uL (4.2-5.4); White Blood Count 8.64 K/uL (4.8-10.8)
[2022-02-13 14:36] LABS: Partial Thromboplastin Ratio 0.9; Prothrombin Time 10.9 Seconds (9.0-12.0)
[2022-02-13 14:44] LABS: Albumin Level 3.6 gm/dl (3.4-5.0); BUN Creatinine Ratio 24.6 (10-20); Bilirubin,Total 0.4 mg/dl (0.2-1.0); Calcium 9.8 mg/dl (8.5-10.1); Creatinine Clr Calc Pharmacy 50.1 ml/min; Est GFR (African American) 48.5 ml/min; Est GFR (Non-African American) 41.8 ml/min; Globulin 3.6 gm/dl (2.5-4.0); Magnesium 1.7 mg/dl (1.7-2.4); Potassium 4.1 mmol/L (3.5-5.1); Total Protein 7.2 gm/dl (6.0-8.3)
[2022-02-13 14:46] LABS: Base Excess VBG 5.2 mEq/L; Oxygen Saturation VBG 78.3 %; pH VBG 7.42 (7.36-7.41)
--- NOTE | 2022-02-13 15:02 | Emergency Department Note ---
History of Present Illness General Chief Complaint: Shortness of Breath/Dyspnea Stated Complaint: LOW O2 LEVEL, RT LUNG PROBLEM-REF BY DOC Time Seen by Provider: 02/13/22 13:30 History of Present Illness Provider Complaint: shortness of breath and cough Onset (ago): week(s) (2) Severity: severe Consistency/Duration: + progressively worsening Maximum Pain Intensity: 4 Current Pain Intensity: 3 Relieved By: + rest Exacerbated By: + exertion and + coughing Context: + recent illness; no choking/aspiration or no recent travel Known history of: congestive heart failure Associated symptoms: + fever, + cough, + wheezing and + sputum production; no chest pain, no pain with inspiration, no orthopnea, no polyuria, no paresthesias, no hemoptysis, no abdominal pain, no chest congestion or no lightheadedness HPI Narrative: Patient reports her oxygen saturation was low and was referred to the emergency department by her PCP. She also reports that her's who was sitting at bedside had similar symptoms. Patient reports she is vaccinated but not boosted against COVID-19. Patient states she took a home COVID test which was negative. Home Medications Medication Instructions Recorded Confirmed Type clonazepam 0.5 mg tablet 0.25 mg PO DAILY PRN tab 07/02/19 02/13/22 History cyanocobalamin (vitamin B-12) 2,500 mcg PO DAILY tab 07/02/19 02/13/22 History 2,500 mcg tablet duloxetine 60 mg capsule,delayed 60 mg PO DAILY cap 07/02/19 02/13/22 History release losartan 100 mg tablet 100 mg PO DAILY #90 tab 07/02/19 02/13/22 History omeprazole 20 mg capsule,delayed 20 mg PO DAILY #90 cap 07/02/19 02/13/22 History release risperidone 1 mg tablet 1 mg PO QPM tab 07/02/19 02/13/22 History cinnamon bark 500 mg capsule 500 mg PO DAILY cap 10/26/19 02/13/22 History pen needle, diabetic 32 gauge x #400 ea 11/25/19 12/18/21 Rx 5/32" (BD Ultra-Fine Jenny Pen Needle) insulin glargine U-300 conc 300 112 unit SQ HS 90 Days #36 ml 11/22/20 02/13/22 Rx unit/mL (3 mL) subcutaneous pen carvedilol 25 mg tablet 25 mg PO BID #180 tab 05/17/21 02/13/22 Rx furosemide 40 mg tablet 40 mg PO BID #180 tab 06/21/21 02/13/22 Rx blood sugar diagnostic #300 ea 12/06/21 12/18/21 Rx flash glucose sensor (FreeStyle 12/06/21 12/18/21 History Eladio 2 Sensor) glucagon HCl 1 mg solution for 1 mg SUBCUT Q20M PRN #1 ea 12/06/21 02/13/22 Rx injection (Glucagon (HCl) Emergency Kit) trazodone 100 mg tablet 100 mg PO DAILY 12/06/21 02/13/22 History insulin aspart U-100 100 unit/mL 100 unit SUBCUT DAILY 90 Days #90 01/04/22 02/13/22 Rx (3 mL) subcutaneous pen ml albuterol sulfate 90 mcg/actuation 2 puff INHALATION Q6H 02/13/22 02/13/22 History aerosol inhaler amoxicillin 875 mg-potassium 1 tab PO BID 02/13/22 02/13/22 History clavulanate 125 mg tablet aspirin 81 mg tablet,delayed 81 mg PO DAILY 02/13/22 02/13/22 History release calcium carb-ergocalciferol (vit 1 tab PO BID 02/13/22 02/13/22 History D2) 600 mg calcium-200 unit tablet cholecalciferol (vitamin D3) 25 25 mcg PO DAILY 02/13/22 02/13/22 History mcg (1,000 unit) tablet codeine 10 mg-guaifenesin 100 mg/5 5 ml PO BID PRN 02/13/22 02/13/22 History mL oral liquid fish, borage, flaxseed oils-omega 1 cap PO DAILY 02/13/22 02/13/22 History 3,6,9 cb #1 400 mg-400 mg-400 mg cap (Sumpter 3-6-9 Complex) glucagon 3 mg/actuation nasal 3 mg INTRANASAL ONCE PRN 02/13/22 02/13/22 History spray (Baqsimi) Allergies Allergy/AdvReac Type Severity Reaction Status Date / Time Sulfa (Sulfonamide Allergy Unknown Verified 02/13/22 15:32 Antibiotics) Past Med/Surg History Medical History Ambulatory dysfunction CAD (coronary artery disease) Cardiomyopathy Chronic systolic (congestive) heart failure CKD (chronic kidney disease) stage 3, GFR 30-59 ml/min Hx of hypoglycemia Hypercholesterolemia Hypertension Insulin-requiring or dependent type II diabetes mellitus Obesity Uncontrolled type 2 diabetes mellitus Surgical History History of bilateral total hip arthroplasty Hx of arthroscopy of knee Hx of hand surgery Hx of right cataract extraction Hx of shoulder surgery Status post total abdominal hysterectomy and bilateral salpingo-oophorectomy Family History Mother Diabetes Unknown Colon cancer Father Myocardial infarction Denies family history of Ovarian cancer Prostate cancer Breast cancer Social History Smoking Status: Never smoker Hx Alcohol Use: Yes Hx Substance Use: No marital status: Current Living Situation: Spouse current occupational status: retired 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. Feels Safe at Home: Yes Dental Care, Regularly: Yes Review of Systems A total of 10 systems reviewed and were otherwise negative Physical Exam Vital Signs: Vital Signs - 24 hr 02/13/22 13:03 02/13/22 13:45 02/13/22 15:00 Temperature 37.2 C Temperature Source Temporal Artery Sc an Pulse Rate 66 64 Pulse Rate [Right Finger] 63 64 Pulse Rhythm Regular Pulse Rhythm [Righ t Finger] Regular Regular Pulse Strength Normal Pulse Strength [Ri ght Finger] Normal Normal Respiratory Rate 20 24 19 Respiratory Effort / Characteristics Non-Labored Sponta neous Spontaneous Non-Labored Respiratory Depth Normal Normal Normal Respiratory Patter n Tachypnea Regular Blood Pressure 155/82 H Blood Pressure [Ri ght Arm] 173/98 H 178/93 H Blood Pressure Amna n 106 Blood Pressure Amna n [Right Arm] 123 121 Blood Pressure Pos ition Sitting Blood Pressure Pos ition [Right Arm] Lying Lying Pulse Oximetry 93 95 96 Oxygen Delivery Me thod Room Air Nasal Cannula Room Air Oxygen Flow Rate 2 Sepsis Recent Feve r Within 48 Hours No Sepsis New/Unexpla ined Change in Men pérez Status N/A Sepsis Action Take n by Nursing No Action Required Oxygen Flow Rate - Titration 2 Pulse Oximetry Pos t Tiitration 95 02/13/22 17:00 Temperature Temperature Source Pulse Rate Pulse Rate [Right Finger] 63 Pulse Rhythm Pulse Rhythm [Righ t Finger] Regular Pulse Strength Pulse Strength [Ri ght Finger] Normal Respiratory Rate 20 Respiratory Effort / Characteristics Non-Labored Respiratory Depth Normal Respiratory Patter n Regular Blood Pressure Blood Pressure [Ri ght Arm] 175/89 H Blood Pressure Amna n Blood Pressure Amna n [Right Arm] 117 Blood Pressure Pos ition Blood Pressure Pos ition [Right Arm] Lying Pulse Oximetry 96 Oxygen Delivery Me thod Nasal Cannula Oxygen Flow Rate 2 Sepsis Recent Feve r Within 48 Hours Sepsis New/Unexpla ined Change in Men pérez Status Sepsis Action Take n by Nursing Oxygen Flow Rate - Titration Pulse Oximetry Pos t Tiitration Physical Exam: Physical Exam GENERAL: She is oriented to person, place, and time. She appears well-developed and well-nourished. She does not appear distressed. HENT: Exam performed. -Head: Normocephalic and atraumatic. -Right Ear: External ear normal. No mastoid tenderness. -Left Ear: External ear normal. No mastoid tenderness. -Mouth/Throat: The oropharynx is clear and moist. No trismus in the jaw. No dental abscesses or uvula swelling. No oropharyngeal exudate or tonsillar abscesses. EYES: Conjunctivae and EOM are normal. Pupils are equal, round, and reactive to light. Right eye exhibits no discharge. Left eye exhibits no discharge. No scleral icterus. NECK: Normal range of motion. Neck supple. No JVD present. No spinous process tenderness present. No carotid bruit present. No rigidity. No tracheal deviation and normal range of motion present. No Brudzinski's sign and no Kernig's sign noted. CV: Normal rate, regular rhythm, normal heart sounds and intact distal pulses. There is no peripheral edema. Palpable radial pulses bue. PULM/CHEST: Rhonchi bilaterally. Diminished breath sounds at the bases bilaterally. -Chest Wall: She exhibits no tenderness. ABD: The abdomen is soft. Bowel sounds are normal. She has no distension. No mass is present. There is no tenderness. There is no rebound, no guarding, no Zamudio's sign and no tenderness at McBurney's point. Rovsig negative MUSC/SKEL: Normal range of motion. There is no peripheral edema, tenderness or deformity. LYMPH: No cervical adenopathy. NEURO: She is alert and oriented to person, place, and time. She has normal strength. No cranial nerve deficit or sensory deficit. Coordination and gait normal. GCS eye subscore is 4. GCS verbal subscore is 5. GCS motor subscore is 6. Cerebellar tests wnl. SKIN: Skin is warm and dry. She is not diaphoretic. PSYCH: She has a normal mood and affect. Behavior is normal. Judgment and thought content normal. Course Course 1330: The patient was evaluated in room C8. A complete history and physical exam was performed Cardiac monitoring: An order was placed for continuous cardiac monitoring. The monitor shows a rate of 70 with sinus rhythm Patient was found to be hypoxic on room air. Supplemental oxygen was applied via nasal cannula which improved the patient's oxygen saturation. 1600:Vital signs stable on supplemental oxygen via nasal cannula. Labs are within normal limits, COVID screen is pending. Imaging shows no PE infiltrate or fluid overload. [facility]. 181: Patient COVID-negative. Administered Medications Discontinued Medications Ioversol (Optiray 320 125ml) 120 ml IV ONCE ONE Stop: 02/13/22 15:25 Last Admin: 02/13/22 15:10 Dose: 120 ml Documented by: [id number] Medical Decision Making Laboratory Data Result diagrams: 02/13/22 13:24 02/13/22 13:24 Lab Results 02/13/22 02/13/22 02/13/22 Range/Units 13:24 13:24 13:24 WBC 8.64 (4.8-10.8) K/uL RBC 4.47 (4.2-5.4) M/uL Hgb 14.2 (12.0-16.0) g/dL Hct 42.7 (37-47) % MCV 95.5 (80-100) fL MCH 31.8 (25-34) pg MCHC 33.3 (32-36) g/dL RDW Std Deviation 46.4 H (36.4-46.3) fL RDW Coeff of Dilia 13.5 (11.5-14.5) % Plt Count 249 (130-400) K/uL MPV 10.5 H (7.4-10.4) fL Immature Gran % (Auto) 0.1 % Neut % (Auto) 65.2 % Lymph % (Auto) 27.1 % Boone % (Auto) 4.5 % Eos % (Auto) 2.9 % Baso % (Auto) 0.2 % Neut # (Auto) 5.63 (1.4-6.5) K/uL Lymph # (Auto) 2.34 (1.2-3.4) K/uL Boone # (Auto) 0.39 (0.11-0.59) K/uL Eos # (Auto) 0.25 (0-0.5) K/uL Baso # (Auto) 0.02 (0-0.2) K/uL Immature Gran # (Auto) 0.01 (0.00-0.02) K/uL PT 10.9 (9.0-12.0) Seconds INR 1.0 (0.9-1.1) APTT 25.0 (21.0-31.0) Seconds PTT Ratio 0.9 VBG pH (7.36-7.41) VBG pCO2 (38-50) mmHg VBG pO2 mmHg VBG HCO3 mmol/L VBG O2 Saturation % VBG Base Excess mEq/L Barometric Pressure mm/Hg Sodium 135 L (136-145) mmol/L Potassium 4.1 (3.5-5.1) mmol/L Chloride 98 (98-107) mmol/L Carbon Dioxide 30 (21-32) mmol/L Anion Gap 7 (3-11) BUN 30 H (6-23) mg/dl Creatinine 1.22 H (0.6-1.2) mg/dl Est Cr Clr Drug Dosing 50.1 ml/min Est GFR ( Amer) 48.5 ml/min Est GFR (Non-Af Amer) 41.8 ml/min BUN/Creatinine Ratio 24.6 H (10-20) Glucose 258 H (70-99(Fasting)) mg/dl Calcium 9.8 (8.5-10.1) mg/dl Magnesium 1.7 (1.7-2.4) mg/dl Total Bilirubin 0.4 (0.2-1.0) mg/dl AST 11 L (13-39) U/L ALT 9 (7-52) U/L Alkaline Phosphatase 123 H (34-104) U/L Troponin I High Sens (0-14) pg/ml B-Natriuretic Peptide (0-100) pg/ml Total Protein 7.2 (6.0-8.3) gm/dl Albumin 3.6 (3.4-5.0) gm/dl Globulin 3.6 (2.5-4.0) gm/dl Albumin/Globulin Ratio 1.0 (0.9-2) SARS-CoV-2, RNA, NAAT (NEGATIVE) 02/13/22 02/13/22 02/13/22 Range/Units 13:24 14:05 14:05 WBC (4.8-10.8) K/uL RBC (4.2-5.4) M/uL Hgb (12.0-16.0) g/dL Hct (37-47) % MCV (80-100) fL MCH (25-34) pg MCHC (32-36) g/dL RDW Std Deviation (36.4-46.3) fL RDW Coeff of Dilia (11.5-14.5) % Plt Count (130-400) K/uL MPV (7.4-10.4) fL Immature Gran % (Auto) % Neut % (Auto) % Lymph % (Auto) % Boone % (Auto) % Eos % (Auto) % Baso % (Auto) % Neut # (Auto) (1.4-6.5) K/uL Lymph # (Auto) (1.2-3.4) K/uL Boone # (Auto) (0.11-0.59) K/uL Eos # (Auto) (0-0.5) K/uL Baso # (Auto) (0-0.2) K/uL Immature Gran # (Auto) (0.00-0.02) K/uL PT (9.0-12.0) Seconds INR (0.9-1.1) APTT (21.0-31.0) Seconds PTT Ratio VBG pH 7.42 H (7.36-7.41) VBG pCO2 49 (38-50) mmHg VBG pO2 44 mmHg VBG HCO3 31 mmol/L VBG O2 Saturation 78.3 % VBG Base Excess 5.2 mEq/L Barometric Pressure 732.1 mm/Hg Sodium (136-145) mmol/L Potassium (3.5-5.1) mmol/L Chloride (98-107) mmol/L Carbon Dioxide (21-32) mmol/L Anion Gap (3-11) BUN (6-23) mg/dl Creatinine (0.6-1.2) mg/dl Est Cr Clr Drug Dosing ml/min Est GFR ( Amer) ml/min Est GFR (Non-Af Amer) ml/min BUN/Creatinine Ratio (10-20) Glucose (70-99(Fasting)) mg/dl Calcium (8.5-10.1) mg/dl Magnesium (1.7-2.4) mg/dl Total Bilirubin (0.2-1.0) mg/dl AST (13-39) U/L ALT (7-52) U/L Alkaline Phosphatase (34-104) U/L Troponin I High Sens 12.4 (0-14) pg/ml B-Natriuretic Peptide 23 (0-100) pg/ml Total Protein (6.0-8.3) gm/dl Albumin (3.4-5.0) gm/dl Globulin (2.5-4.0) gm/dl Albumin/Globulin Ratio (0.9-2) SARS-CoV-2, RNA, NAAT (NEGATIVE) 02/13/22 Range/Units 16:03 WBC (4.8-10.8) K/uL RBC (4.2-5.4) M/uL Hgb (12.0-16.0) g/dL Hct (37-47) % MCV (80-100) fL MCH (25-34) pg MCHC (32-36) g/dL RDW Std Deviation (36.4-46.3) fL RDW Coeff of Dilia (11.5-14.5) % Plt Count (130-400) K/uL MPV (7.4-10.4) fL Immature Gran % (Auto) % Neut % (Auto) % Lymph % (Auto) % Boone % (Auto) % Eos % (Auto) % Baso % (Auto) % Neut # (Auto) (1.4-6.5) K/uL Lymph # (Auto) (1.2-3.4) K/uL Boone # (Auto) (0.11-0.59) K/uL Eos # (Auto) (0-0.5) K/uL Baso # (Auto) (0-0.2) K/uL Immature Gran # (Auto) (0.00-0.02) K/uL PT (9.0-12.0) Seconds INR (0.9-1.1) APTT (21.0-31.0) Seconds PTT Ratio VBG pH (7.36-7.41) VBG pCO2 (38-50) mmHg VBG pO2 mmHg VBG HCO3 mmol/L VBG O2 Saturation % VBG Base Excess mEq/L Barometric Pressure mm/Hg Sodium (136-145) mmol/L Potassium (3.5-5.1) mmol/L Chloride (98-107) mmol/L Carbon Dioxide (21-32) mmol/L Anion Gap (3-11) BUN (6-23) mg/dl Creatinine (0.6-1.2) mg/dl Est Cr Clr Drug Dosing ml/min Est GFR ( Amer) ml/min Est GFR (Non-Af Amer) ml/min BUN/Creatinine Ratio (10-20) Glucose (70-99(Fasting)) mg/dl Calcium (8.5-10.1) mg/dl Magnesium (1.7-2.4) mg/dl Total Bilirubin (0.2-1.0) mg/dl AST (13-39) U/L ALT (7-52) U/L Alkaline Phosphatase (34-104) U/L Troponin I High Sens (0-14) pg/ml B-Natriuretic Peptide (0-100) pg/ml Total Protein (6.0-8.3) gm/dl Albumin (3.4-5.0) gm/dl Globulin (2.5-4.0) gm/dl Albumin/Globulin Ratio (0.9-2) SARS-CoV-2, RNA, NAAT NEGATIVE (NEGATIVE) Imaging Data Radiologist's Impression: Chest X-Ray 02/13/22 13:09 SINGLE VIEW CHEST CLINICAL HISTORY: Dyspnea. FINDINGS: An AP, portable, upright chest radiograph is compared to study dated 02/09/2022. Correlation is made with chest CT dated 01/10/2018. The examination is degraded by portable technique and large body habitus. The heart is top normal for projection. Mild pulmonary vascular congestion persists. Airspace opacities are noted at the left lung base. No pneumothorax is seen. The skeletal structures are osteopenic. The bony thorax is grossly intact. Degenerative change is noted in the shoulders and thoracic spine. IMPRESSION: 1. Mild pulmonary vascular congestion persists. 2. Airspace opacities are seen at the left lung base. This could represent atelectasis versus a mild infectious/inflammatory pneumonitis. Clinical correlation will be required. ACT 112: Negative or not required by law. Electronically signed by: Hang Bush M.D. 02/13/2022 1:37 PM Chest CTA 02/13/22 13:45 CT ANGIOGRAM OF THE CHEST CLINICAL HISTORY: Atypical chest pain. Cough and dyspnea. COMPARISON STUDY: Chest x-ray dated 02/13/2022. Chest CT dated 01/10/2018. TECHNIQUE: Following the IV administration of 120 cc of Optiray 320, CT angiogr am of the chest was performed from the upper abdomen to the thoracic inlet utilizing the pulmonary embolus protocol. Images are reviewed in the axial, sagittal, and coronal planes. 3-D MIPS images are created and assessed. IV contrast was administered without complication. A dose lowering technique was utilized adhering to the principles of ALARA. Number Examination is compromised by motion artifact. There is also streak artifact from the left arm which could not be elevated above the chest. CT DOSE: 889.97 mGy.cm FINDINGS: Thyroid: Enlarged and heterogeneous. Thoracic aorta: There is mild atherosclerotic calcification of the thoracic aorta, with is normal in caliber and demonstrates standard 3-vessel arch anatomy. No dissection is seen. Pulmonary vasculature: The pulmonary trunk is normal in caliber. There are no filling defects identified in main, lobar, or segmental pulmonary branches to suggest pulmonary embolus. The subsegmental branches are not well assessed due to motion artifact. Heart: The heart is mildly enlarged and without pericardial effusion. Lungs and pleural spaces: Evaluation of the lung parenchyma is degraded by motion artifact. The trachea and central airways are clear. Scarring/atelectasis is noted at the lung bases. No pleural effusion is identified. There is no airspace consolidation typical for pneumonia. A 4 mm left upper lobe pulmonary nodule is seen on image #212. This was present on 01/10/2018. A 2 mm left lower lobe nodule is seen on image #133. This was not seen previously, possibly due to motion artifact Mediastinum: There is no mediastinal lymphadenopathy. Vesta: Clear. Axillae: There is no axillary lymphadenopathy. Upper abdomen: Partially visualized upper abdominal viscera is within normal limits. Skeletal structures: The skeletal structures are osteopenic. Advanced spondylotic change is seen throughout the imaged spine. No lytic or blastic bony lesions are seen. IMPRESSION: 1. Streak and motion compromised examination. 2. There is no evidence of pulmonary embolus in the main, lobar, or segmental pulmonary arteries. 3. There is no airspace consolidation typical for pneumonia or pleural effusion. 4. Additional findings as above. ACT 112: Negative or not required by law. Electronically signed by: Hang Bush M.D. 02/13/2022 3:27 PM ECG Data Interpretation: Sinus rhythm with a rate of 68. DE 172 QRS 150 QTC 478. Left bundle branch block present sgarbosa negative [facility] Narrative 1330: The patient was evaluated in room C8. A complete history and physical exam was performed Cardiac monitoring: An order was placed for continuous cardiac monitoring. The monitor shows a rate of 70 with sinus rhythm Patient was found to be hypoxic on room air. Supplemental oxygen was applied via nasal cannula which improved the patient's oxygen saturation. 1600:Vital signs stable on supplemental oxygen via nasal cannula. Labs are within normal limits, COVID screen is pending. Imaging shows no PE infiltrate or fluid overload. [facility]. 181: Patient COVID-negative. Impression & Plan Hypoxia Critical Care Time Critical Care Time: Yes Total Critical Care Time: 51 I have personally spent greater than 51 minutes of critical care time in the direct management of this patient. This includes bedside care, interpretation of diagnostic studies, and testing, discussion with consultants, patient, and family members, and other required patient management activities. This 51 minutes is in excess of all separately billable procedures. Discharge Plan Visit Data Chief Complaint: Shortness of Breath/Dyspnea Stated Complaint: LOW O2 LEVEL, RT LUNG PROBLEM-REF BY DOC Discharge Problem: Hypoxia Patient Disposition: Admitted As Inpatient Forms Stand Alone Forms: My [facility] Prescriptions Prescriptions: No Action (DME) pen needle, diabetic [BD Ultra-Fine Jenny Pen Needle] 32 gauge x 5/32" needle See Rx Instructions .ROUTE .MEDSUPPLY Qty: 400 RF: 3 carvedilol 25 mg tablet 25 mg PO BID Qty: 180 RF: 3 furosemide 40 mg tablet 40 mg PO BID Qty: 180 RF: 3 (DME) blood sugar diagnostic Strip See Rx Instructions .ROUTE .MEDSUPPLY Qty: 300 RF: 3 insulin aspart U-100 100 unit/mL (3 mL) insulin pen 100 unit subcut DAILY 90 Days Qty: 90 RF: 1 clonazepam 0.5 mg tablet 0.25 mg PO DAILY PRN (Reason: Anxiety) RF: 0 duloxetine 60 mg capsule,delayed release(DR/EC) 60 mg PO DAILY RF: 0 risperidone 1 mg tablet 1 mg PO QPM RF: 0 omeprazole 20 mg capsule,delayed release(DR/EC) 20 mg PO DAILY Qty: 90 RF: 0 losartan 100 mg tablet 100 mg PO DAILY Qty: 90 RF: 0 cyanocobalamin (vitamin B-12) 2,500 mcg tablet 2,500 mcg PO DAILY RF: 0 cinnamon bark 500 mg capsule 500 mg PO DAILY RF: 0 trazodone 100 mg tablet 100 mg PO DAILY RF: 0 insulin glargine U-300 conc 300 unit/mL (3 mL) insulin pen 112 unit SQ HS 90 Days Qty: 36 RF: 3 Glucagon (HCl) Emergency Kit 1 mg recon soln 1 mg subcut Q20M PRN (Reason: hypoglycemia) Qty: 1 RF: 5 (DME) FreeStyle Eladio 2 Sensor Kit See Rx Instructions .Route RF: 0 aspirin [Aspir-Low] 81 mg Tablet,Delayed Release (Dr/Ec) 81 mg PO DAILY RF: 0 Calcium 600 with Vitamin D2 600 mg calcium- 200 unit Tablet 1 tab PO BID RF: 0 Baqsimi 3 mg/actuation spray,non-aerosol 3 mg intranasal ONCE PRN (Reason: Hypoglycemia) RF: 0 fish,bora,flax oils-om3,6,9no1 [Sumpter 3-6-9 Complex] 400-400-400 mg Capsule 1 cap PO DAILY RF: 0 codeine-guaifenesin 10-100 mg/5 mL liquid 5 ml PO BID PRN (Reason: Cough) RF: 0 albuterol sulfate 90 mcg/actuation HFA aerosol inhaler 2 puff INHALATION Q6H RF: 0 amoxicillin-pot clavulanate 875-125 mg tablet 1 tab PO BID RF: 0 cholecalciferol (vitamin D3) 25 mcg (1,000 unit) Tablet 25 mcg PO DAILY RF: 0 Referrals Referrals: Honey Gonzalez MD [Primary Care Provider] -
[2022-02-13] MEDS ORDERED: OPTIRAY 320 125ml IV ONE (15:24)
--- NOTE | 2022-02-13 15:28 | CT Scan Report ---
CT ANGIOGRAM OF THE CHEST CLINICAL HISTORY: Atypical chest pain. Cough and dyspnea. COMPARISON STUDY: Chest x-ray dated 02/13/2022. Chest CT dated 01/10/2018. TECHNIQUE: Following the IV administration of 120 cc of Optiray 320, CT angiogram of the chest was pe rformed from the upper abdomen to the thoracic inlet utilizing the pulmonary embolus protocol. Images are reviewed in the axial, sagittal, and coronal planes. 3-D MIPS images are created and assessed. I V contrast was administered without complication. A dose lowering technique was utilized adhering to the principles of ALARA. Number Examination is compromised by motion artifact. There is also streak artifact from the left arm which could not be elevated above the chest. CT DOSE: 889.97 mGy.cm FINDINGS: Thyroid: Enlarged and heterogeneous. Thoracic aorta: There is mild atherosclerotic calcification of the thoracic aorta, with is normal in caliber and demonstrates standard 3-vessel arch anatomy. No dissection is seen. Pulmonary vasculature: The pulmonary trunk is normal in caliber. There are no filling defects identif ied in main, lobar, or segmental pulmonary branches to suggest pulmonary embolus. The subsegmental br anches are not well assessed due to motion artifact. Heart: The heart is mildly enlarged and without pericardial effusion. Lungs and pleural spaces: Evaluation of the lung parenchyma is degraded by motion artifact. The trach ea and central airways are clear. Scarring/atelectasis is noted at the lung bases. No pleural effusio n is identified. There is no airspace consolidation typical for pneumonia. A 4 mm left upper lobe pul monary nodule is seen on image #212. This was present on 01/10/2018. A 2 mm left lower lobe nodule is seen on image #133. This was not seen previously, possibly due to motion artifact Mediastinum: There is no mediastinal lymphadenopathy. Vesta: Clear. Axillae: There is no axillary lymphadenopathy. Upper abdomen: Partially visualized upper abdominal viscera is within normal limits. Skeletal structures: The skeletal structures are osteopenic. Advanced spondylotic change is seen thro ughout the imaged spine. No lytic or blastic bony lesions are seen. IMPRESSION: 1. Streak and motion compromised examination. 2. There is no evidence of pulmonary embolus in the main, lobar, or segmental pulmonary arteries. 3. There is no airspace consolidation typical for pneumonia or pleural effusion. 4. Additional findings as above. ACT 112: Negative or not required by law. Electronically signed by: Hang Bush M.D. 02/13/2022 3:27 PM
--- NOTE | 2022-02-13 18:10 | History & Physical Report ---
Date of Service February 13, 2022 Assessment & Plan (1) Hypoxia: Plan: Hypoxia with what appears to be viral URI with bronchitis resulting in atelectasis congestion - Normal WBC with normal NLR and BNP is not elevated - Albuterol nebulizers schedule - Hypertonic saline BID with Flutter valve QID - Azithromycin in place of Augmentin for anti-inflammatory disease - CTA of chest negative for acute process or pneumonia - Follow clinical course - Diurese as needed (2) CKD (chronic kidney disease) stage 3, GFR 30-59 ml/min: Plan: Stable follow while in house - avoid nephrotoxic medications (3) Urinary symptom or sign: Plan: Chronic incontinence follows with OBGYN in [facility] [place] - no acute needs (4) Obesity: Plan: Likely has component of obesity hypoventilation with increasing HCo3 over past year - would likely benefit from sleep study as outpatient - requires assistance at home from her for ADLS- also requsted wheelchair for assistance in getting around - weight loss would be recommended (5) CAD (coronary artery disease): Plan: nonobstructive by review from 2002- no further workup or stratification needed as she is reportedly without symptoms with review of her cardiology notes - continue BB, ASA, ARB - hold her OMEGA 3-6-9 complex (6) Chronic systolic (congestive) heart failure: Plan: As above - Stable last ECHO in 2012 - this is not an acute exacerbation (7) Hypertension: Plan: As above appears well controlled - Continue with BB, ARB, L (8) Hypercholesterolemia: Plan: As above (9) Insulin-requiring or dependent type II diabetes mellitus: Plan: Patient with difficult control of diabetes with history of hypoglycemia as well - Will continue home lantus - place on sliding scale aspart insulin with CF 20 and ration 1:9 - snack at bedtime History of Present Illness Primary Care Provider: Honey Gonzalez MD 81 YOF with medical history of: Morbid obesity, DM II (on insulin), HTN, HLD, CAD, HFrEF, CM,urinary incontinence, anxiety. Patient comes to the EMD today for continued dyspnea and noted hypoxia at home. Patient was previously seen by PCP on Saturday last week. She had CXR done at that time without focal lung consolidations, was placed on Augmentin, given Albuterol, guaifenesin and fol lowed up through Saturday with remaining reported SPO2 at home of high 80s. She reports that she is still coughing up yellow sputum, but feels as she can not get it expectorated. She does not feel dyspneic more than normal. No pain with coughing and endorses negative fevers or sweats. Her is also having the same symptoms but he improves he is feeling better. The patient had negative COVID test reported at PCP as well as negative RNA NAAT in EMD. endorses that he is feeling better. The patient had CTA of the chest completed in EMD without evidence of PE but noted with atelectasis. Patient is wheezing in upper airways with raspy cough. Patient will be admitted for her hypoxia requiring 2LNC for SPO2 > 91%. She did desaturate on room air while talking. Will provide nebulizers with albuterol as well as hypertonic saline to assist with expectoration of secretions, flutter valve QID, and azithromycin for anti- inflammatory properties. Will check Influenza on admission- currently consistent with URI/Bronchitis with atelectasis. COVID test on admission is: NEGATIVE Allergies Allergy/AdvReac Type Severity Reaction Status Date / Time Sulfa (Sulfonamide Allergy Unknown Verified 02/13/22 15:32 Antibiotics) Home Medications Medication Instructions Recorded Confirmed Type clonazepam 0.5 mg tablet 0.25 mg PO DAILY PRN tab 07/02/19 02/13/22 History cyanocobalamin (vitamin B-12) 2,500 mcg PO DAILY tab 07/02/19 02/13/22 History 2,500 mcg tablet duloxetine 60 mg capsule,delayed 60 mg PO DAILY cap 07/02/19 02/13/22 History release losartan 100 mg tablet 100 mg PO DAILY #90 tab 07/02/19 02/13/22 History omeprazole 20 mg capsule,delayed 20 mg PO DAILY #90 cap 07/02/19 02/13/22 History release risperidone 1 mg tablet 1 mg PO QPM tab 07/02/19 02/13/22 History cinnamon bark 500 mg capsule 500 mg PO DAILY cap 10/26/19 02/13/22 History pen needle, diabetic 32 gauge x #400 ea 11/25/19 12/18/21 Rx 5/32" (BD Ultra-Fine Jenny Pen Needle) insulin glargine U-300 conc 300 112 unit SQ HS 90 Days #36 ml 11/22/20 02/13/22 Rx unit/mL (3 mL) subcutaneous pen carvedilol 25 mg tablet 25 mg PO BID #180 tab 05/17/21 02/13/22 Rx furosemide 40 mg tablet 40 mg PO BID #180 tab 06/21/21 02/13/22 Rx blood sugar diagnostic #300 ea 12/06/21 12/18/21 Rx flash glucose sensor (FreeStyle 12/06/21 12/18/21 History Eladio 2 Sensor) glucagon HCl 1 mg solution for 1 mg SUBCUT Q20M PRN #1 ea 12/06/21 02/13/22 Rx injection (Glucagon (HCl) Emergency Kit) trazodone 100 mg tablet 100 mg PO DAILY 12/06/21 02/13/22 History insulin aspart U-100 100 unit/mL 100 unit SUBCUT DAILY 90 Days #90 01/04/22 02/13/22 Rx (3 mL) subcutaneous pen ml albuterol sulfate 90 mcg/actuation 2 puff INHALATION Q6H 02/13/22 02/13/22 History aerosol inhaler aspirin 81 mg tablet,delayed 81 mg PO DAILY 02/13/22 02/13/22 History release calcium carb-ergocalciferol (vit 1 tab PO BID 02/13/22 02/13/22 History D2) 600 mg calcium-200 unit tablet cholecalciferol (vitamin D3) 25 25 mcg PO DAILY 02/13/22 02/13/22 History mcg (1,000 unit) tablet codeine 10 mg-guaifenesin 100 mg/5 5 ml PO BID PRN 02/13/22 02/13/22 History mL oral liquid fish, borage, flaxseed oils-omega 1 cap PO DAILY 02/13/22 02/13/22 History 3,6,9 cb #1 400 mg-400 mg-400 mg cap (Josephine 3-6-9 Complex) glucagon 3 mg/actuation nasal 3 mg INTRANASAL ONCE PRN 02/13/22 02/13/22 History spray (Baqsimi) azithromycin 250 mg tablet 250 mg PO QAM #3 tab 02/14/22 Rx Past Med/Surg History Medical History Ambulatory dysfunction CAD (coronary artery disease) Cardiomyopathy Chronic systolic (congestive) heart failure CKD (chronic kidney disease) stage 3, GFR 30-59 ml/min Hx of hypoglycemia Hypercholesterolemia Hypertension Insulin-requiring or dependent type II diabetes mellitus Obesity Uncontrolled type 2 diabetes mellitus Surgical History History of bilateral total hip arthroplasty Hx of arthroscopy of knee Hx of hand surgery Hx of right cataract extraction Hx of shoulder surgery Status post total abdominal hysterectomy and bilateral salpingo-oophorectomy Family History Mother Diabetes Unknown Colon cancer Father Myocardial infarction Denies family history of Ovarian cancer Prostate cancer Breast cancer Social History Smoking Status: Never smoker Hx Alcohol Use: Yes Alcohol type: hard liquor Hx Substance Use: No Preferred Language: Wallisian Communication Ability: Effective Cad Design Engineer Required: No Beliefs That Will Affect Care: None marital status: Current Living Situation: Spouse current occupational status: retired 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 Feels Safe at Home: Yes Dental Care, Regularly: Yes Assistive Devices: Walker Review of Systems Review of Systems: REVIEW OF SYSTEMS: Constitutional: No fever, sweats or chills Eyes: No diplopia, no worsening or blurred vision ENT: normal hearing, no trouble swallowing Respiratory: (+) cough, sputum, dyspnea at rest or on exertion Cardiovascular: No chest pain, tightness or palpitations Abdomen: No pain, nausea, vomiting, diarrhea or constipation Musculoskeletal: No joint pain, calf pain, swelling Neurologic: No weakness, numbness/tingling, or balance problems Psychiatric: No anxiety or depression Skin: No rash or itch Physical Exam Physical Exam: PHYSICAL EXAM: General: awake, alert, no apparent distress Head: Normocephalic, atraumatic ENT: PERRL, EOMI, no pharyngeal exudate, mucous membranes moist Neuro: AAO x 3, speech clear and appropriate, strength intact bilaterally 5/5, sensation intact and equal all extremities and dermatomes, no pronator drift Chest: equal rise and fall of the chest, conversational dyspneic with scattered rhonchi and wheezing bilateral upper airways, decreased in bases but may be to body habitus Cardiac: Regular rate and rhythm, telemetry reviewed, skin warm dry, cap refill <3 seconds, peripheral pulses +2 no JVD, no murmur, +2 edema to bilateral lower extremities GI: NABS x 4 quadrants, soft, nontender to palpation, no rebound, guarding or tenderness : Spontaneously voiding, no pain, no CVA tenderness, Psych: Normal mood and affect Skin: no rash or erythema Results & Data Results & Data ([facility]) Vital Signs (Past 12 Hours) Vital Signs Temp Pulse Pulse Resp BP BP Pulse Ox 02/13/22 17:00 63 20 175/89 H 96 02/13/22 15:00 64 19 178/93 H 96 02/13/22 13:45 64 63 24 173/98 H 95 02/13/22 13:03 37.2 C 66 20 155/82 H 93 Laboratory Results Abnormal lab results 02/13/22 02/13/22 02/13/22 Range/Units 13:24 13:24 14:05 RDW Std Deviation 46.4 H (36.4-46.3) fL MPV 10.5 H (7.4-10.4) fL VBG pH 7.42 H (7.36-7.41) Sodium 135 L (136-145) mmol/L BUN 30 H (6-23) mg/dl Creatinine 1.22 H (0.6-1.2) mg/dl BUN/Creatinine Ratio 24.6 H (10-20) Glucose 258 H (70-99(Fasting)) mg/dl AST 11 L (13-39) U/L Alkaline Phosphatase 123 H (34-104) U/L Diagnostic Findings Chest X-Ray 02/13/22 13:09 SINGLE VIEW CHEST CLINICAL HISTORY: Dyspnea. FINDINGS: An AP, portable, upright chest radiograph is compared to study dated 02/09/2022. Correlation is made with chest CT dated 01/10/2018. The examination is degraded by portable technique and large body habitus. The heart is top normal for projection. Mild pulmonary vascular congestion persists. Airspace opacities are noted at the left lung base. No pneumothorax is seen. The skeletal structures are osteopenic. The bony thorax is grossly intact. Degenerative change is noted in the shoulders and thoracic spine. IMPRESSION: 1. Mild pulmonary vascular congestion persists. 2. Airspace opacities are seen at the left lung base. This could represent atelectasis versus a mild infectious/inflammatory pneumonitis. Clinical correlation will be required. ACT 112: Negative or not required by law. Electronically signed by: Hang Bush M.D. 02/13/2022 1:37 PM Chest CTA 02/13/22 13:45 CT ANGIOGRAM OF THE CHEST CLINICAL HISTORY: Atypical chest pain. Cough and dyspnea. COMPARISON STUDY: Chest x-ray dated 02/13/2022. Chest CT dated 01/10/2018. TECHNIQUE: Following the IV administration of 120 cc of Optiray 320, CT angiogram of the chest was performed from the upper abdomen to the thoracic inlet utilizing the pulmonary embolus protocol. Images are reviewed in the axial, sagittal, and coronal planes. 3-D MIPS images are created and assessed. IV contrast was administered without complication. A dose lowering technique was utilized adhering to the principles of ALARA. Number Examination is compromised by motion artifact. There is also streak artifact from the left arm which could not be elevated above the chest. CT DOSE: 889.97 mGy.cm FINDINGS: Thyroid: Enlarged and heterogeneous. Thoracic aorta: There is mild atherosclerotic calcification of the thoracic aorta, with is normal in caliber and demonstrates standard 3-vessel arch anatomy. No dissection is seen. Pulmonary vasculature: The pulmonary trunk is normal in caliber. There are no filling defects identified in main, lobar, or segmental pulmonary branches to suggest pulmonary embolus. The subsegmental branches are not well assessed due to motion artifact. Heart: The heart is mildly enlarged and without pericardial effusion. Lungs and pleural spaces: Evaluation of the lung parenchyma is degraded by motion artifact. The trachea and central airways are clear. Scarring/atelectasis is noted at the lung bases. No pleural effusion is identified. There is no airspace consolidation typical for pneumonia. A 4 mm left upper lobe pulmonary nodule is seen on image #212. This was present on 01/10/2018. A 2 mm left lower lobe nodule is seen on image #133. This was not seen previously, possibly due to motion artifact Mediastinum: There is no mediastinal lymphadenopathy. Vesta: Clear. Axillae: There is no axillary lymphadenopathy. Upper abdomen: Partially visualized upper abdominal viscera is within normal limits. Skeletal structures: The skeletal structures are osteopenic. Advanced spondylotic change is seen throughout the imaged spine. No lytic or blastic bony lesions are seen. IMPRESSION: 1. Streak and motion compromised examination. 2. There is no evidence of pulmonary embolus in the main, lobar, or segmental pulmonary arteries. 3. There is no airspace consolidation typical for pneumonia or pleural effusion. 4. Additional findings as above. ACT 112: Negative or not required by law. Electronically signed by: Hang Bush M.D. 02/13/2022 3:27 PM Medications Administered Home Medications clonazepam 0.5 mg tablet 0.25 mg PO DAILY PRN tab 07/02/19 [History Confirmed 02/13/22] cyanocobalamin (vitamin B-12) 2,500 mcg tablet 2,500 mcg PO DAILY tab 07/02/19 [History Confirmed 02/13/22] duloxetine 60 mg capsule,delayed release 60 mg PO DAILY cap 07/02/19 [History Confirmed 02/13/22] losartan 100 mg tablet 100 mg PO DAILY #90 tab 07/02/19 [History Confirmed 02/13/22] omeprazole 20 mg capsule,delayed release 20 mg PO DAILY #90 cap 07/02/19 [History Confirmed 02/13/22] risperidone 1 mg tablet 1 mg PO QPM tab 07/02/19 [History Confirmed 02/13/22] cinnamon bark 500 mg capsule 500 mg PO DAILY cap 10/26/19 [History Confirmed 02/13/22] pen needle, diabetic 32 gauge x 5/32" (BD Ultra-Fine Jenny Pen Needle) #400 ea 11/25/19 [Rx Confirmed 12/18/21] insulin glargine U-300 conc 300 unit/mL (3 mL) subcutaneous pen 112 unit SQ HS 90 Days #36 ml 11/22/20 [Rx Confirmed 02/13/22] carvedilol 25 mg tablet 25 mg PO BID #180 tab 05/17/21 [Rx Confirmed 02/13/22] furosemide 40 mg tablet 40 mg PO BID #180 tab 06/21/21 [Rx Confirmed 02/13/22] blood sugar diagnostic #300 ea 12/06/21 [Rx Confirmed 12/18/21] flash glucose sensor (FreeStyle Eladio 2 Sensor) 12/06/21 [History Confirmed 12/18/21] glucagon HCl 1 mg solution for injection (Glucagon (HCl) Emergency Kit) 1 mg SUBCUT Q20M PRN #1 ea 12/06/21 [Rx Confirmed 02/13/22] trazodone 100 mg tablet 100 mg PO DAILY 12/06/21 [History Confirmed 02/13/22] insulin aspart U-100 100 unit/mL (3 mL) subcutaneous pen 100 unit SUBCUT DAILY 90 Days #90 ml 01/04/22 [Rx Confirmed 02/13/22] albuterol sulfate 90 mcg/actuation aerosol inhaler 2 puff INHALATION Q6H 02/13/22 [History Confirmed 02/13/22] amoxicillin 875 mg-potassium clavulanate 125 mg tablet 1 tab PO BID 02/13/22 [History Confirmed 02/13/22] aspirin 81 mg tablet,delayed release 81 mg PO DAILY 02/13/22 [History Confirmed 02/13/22] calcium carb-ergocalciferol (vit D2) 600 mg calcium-200 unit tablet 1 tab PO BID 02/13/22 [History Confirmed 02/13/22] cholecalciferol (vitamin D3) 25 mcg (1,000 unit) tablet 25 mcg PO DAILY 02/13/22 [History Confirmed 02/13/22] codeine 10 mg-guaifenesin 100 mg/5 mL oral liquid 5 ml PO BID PRN 02/13/22 [History Confirmed 02/13/22] fish, borage, flaxseed oils-omega 3,6,9 cb #1 400 mg-400 mg-400 mg cap (Josephine 3-6-9 Complex) 1 cap PO DAILY 02/13/22 [History Confirmed 02/13/22] glucagon 3 mg/actuation nasal spray (Baqsimi) 3 mg INTRANASAL ONCE PRN 02/13/22 [History Confirmed 02/13/22] Discontinued Medications Ioversol (Optiray 320 125ml) 120 ml IV ONCE ONE Stop: 02/13/22 15:25 Last Admin: 02/13/22 15:10 Dose: 120 ml Documented by: [id number] ECG Additional Comments: Normal sinus rhythm Left bundle branch block Abnormal ECG When compared with ECG of 26-OCT-2021 03:12, No significant change was found Code Status & VTE Plan Code Status CODE: FULL VTE: SCDS, Lovenox VTE Prophylaxis Plan VTE Prophylaxis will be ordered: Yes Supervising Physician Co-Signing Physician Notes Attending addendum: I have physically seen this patient, have supervised the medical residents activities, and agree with the H&P unless as otherwise noted. Assessment and Plan: Acute respiratory failure with hypoxia- Azithromycin 500 mg IV daily Duonebs every 4 hours while awake and every 2 hours when necessary. Hypertonic saline twice daily and flutter valve 4 times daily Nasal cannula oxygen, titrate to keep pulse ox 92-94% CKD- At baseline Follow serial laboratories remaining orders and notations as noted PG Care Time/CCT Total # of Minutes Spent Total Time Spent with Patient: Total time spent is greater than 50% in coordination of care (as documented) at patient's floor/unit and/or counseling patient: Coding Level of Care Code 10434 Initial Inpt Care Lvl 3 Diagnoses Hypoxia R09.02 CKD (chronic kidney disease) stage 3, GFR 30-59 ml/min N18.30 Urinary symptom or sign R39.9 Obesity E66.9 CAD (coronary artery disease) I25.10 Chronic systolic (congestive) heart failure I50.22 Hypertension I10 Hypercholesterolemia E78.00 Insulin-requiring or dependent type II diabetes mellitus E11.9; Z79.4
[2022-02-13] MEDS ORDERED: ENOXAPARIN INJ 40 MG/0.4 ML SYR SQ SCH (21:45)
[2022-02-13] MEDS ORDERED: ACETAMINOPHEN 325 MG TAB PO PRN (21:45)
[2022-02-13] MEDS ORDERED: risperiDONE 1 MG TABLET PO SCH (21:45)
[2022-02-13] MEDS ORDERED: ONDANSETRON INJ 2 MG/ML 2 ML VIAL IV PRN (21:45)
[2022-02-13] MEDS ORDERED: clonazePAM 0.25 MG TAB PO PRN (21:45)
[2022-02-13] MEDS ORDERED: INSULIN GLARGINE 100 UNIT/ML VIAL SQ ONE (22:15)
[2022-02-13] MEDS ORDERED: ALBUT/IPRATROP 3MG/0.5MG NEB 3 ML VIAL ONE (22:34)
[2022-02-13] MEDS: carvediloL 25 MG TAB PO SCH (22:38)
[2022-02-13] MEDS: FUROSEMIDE 40 MG TAB PO SCH (22:50)
[2022-02-13] MEDS: AZITHROMYCIN 250 MG TAB PO ONE ×2 (22:56→23:20)
[2022-02-13] MEDS: SODIUM CHLOR 7% 4 ML NEB NEB SCH (22:58)
[2022-02-13] MEDS: INSULIN ASPART PER UNIT SC SCH (23:02)
[2022-02-13] MEDS ORDERED: guaiFENesin/CODEINE 100MG/10MG 5ML UDC PO PRN (23:13)
[2022-02-14 03:27] LABS: Influenza A virus by PCR Negative (Negative); Influenza B virus by PCR Negative (Negative)
[2022-02-14] MEDS: SODIUM CHLOR 7% 4 ML NEB NEB SCH (07:07)
[2022-02-14] MEDS: ALBUT/IPRATROP 3MG/0.5MG NEB 3 ML VIAL NEB SCH ×3 (07:10→13:25)
[2022-02-14 08:13] LABS: Basophils # (auto) 0.02 K/uL (0-0.2); Basophils % (auto) 0.2 %; Eosinophils # (auto) 0.27 K/uL (0-0.5); Eosinophils % (auto) 3.3 %; Hematocrit (blood only) 41.9 % (37-47); Hemoglobin 13.7 g/dL (12.0-16.0); Immature Granulocytes # (auto) 0.01 K/uL (0.00-0.02); Immature Granulocytes % (auto) 0.1 %; Lymphocytes # (auto) 2.14 K/uL (1.2-3.4); Lymphocytes % (auto) 26.4 %; Mean Corpuscular Hemoglobin 31.7 pg (25-34); Mean Corpuscular Hgb Conc 32.7 g/dL (32-36); Mean Platelet Volume 10.4 fL (7.4-10.4); Monocytes # (auto) 0.51 K/uL (0.11-0.59); Monocytes % (auto) 6.3 %; Neutrophils # (auto) 5.15 K/uL (1.4-6.5); Neutrophils % (auto) 63.7 %; Platelet Count 234 K/uL (130-400); RDW Coefficient of Variation 13.5 % (11.5-14.5); RDW Standard Deviation 47.8 fL (36.4-46.3); Red Blood Count 4.32 M/uL (4.2-5.4)
[2022-02-14] MEDS: FUROSEMIDE 40 MG TAB PO SCH (08:29)
[2022-02-14] MEDS: carvediloL 25 MG TAB PO SCH (08:30)
[2022-02-14 08:33] LABS: BUN Creatinine Ratio 25.2 (10-20); Calcium 9.7 mg/dl (8.5-10.1); Creatinine Clr Calc Pharmacy 53.8 ml/min; Est GFR (Non-African American) 44.9 ml/min; Potassium 4.5 mmol/L (3.5-5.1)
[2022-02-14] MEDS ORDERED: traZODone HCL 100 MG TAB PO SCH (09:00)
[2022-02-14] MEDS ORDERED: LOSARTAN POTASSIUM 50 MG TAB PO SCH (09:00)
[2022-02-14] MEDS ORDERED: ASPIRIN 81 MG ECTAB PO SCH (09:00)
[2022-02-14] MEDS ORDERED: CYANOCOBALAMIN (B-12) 500 MCG TABLET PO SCH (09:00)
[2022-02-14] MEDS ORDERED: PANTOprazole 40 MG TAB PO SCH (09:00)
[2022-02-14] MEDS ORDERED: AZITHROMYCIN 250 MG TAB PO SCH (09:00)
[2022-02-14] MEDS ORDERED: DULoxetine HCL 60 MG CAP PO SCH (09:00)
[2022-02-14] MEDS: INSULIN ASPART PER UNIT SC SCH ×2 (09:02→12:45)
--- NOTE | 2022-02-14 13:14 | Discharge Summary ---
Date of Service February 14, 2022 Admission HPI Per Admitting Provider 81 YOF with medical history of: Morbid obesity, DM II (on insulin), HTN, HLD, CAD, HFrEF, CM,urinary incontinence, anxiety. Patient comes to the EMD today for continued dyspnea and noted hypoxia at home. Patient was previously seen by PCP on Saturday last week. She had CXR done at that time without focal lung consolidations, was placed on Augmentin, given Albuterol, guaifenesin and followed up through Saturday with remaining reported SPO2 at home of high 80s. She reports that she is still coughing up yellow sputum, but feels as she can not get it expectorated. She does not feel dyspneic more than normal. No pain with coughing and endorses negative fevers or sweats. Her is also having the same symptoms but he improves he is feeling better. The patient had negative COVID test reported at PCP as well as negative RNA NAAT in EMD. endorses that he is feeling better. The patient had CTA of the chest completed in EMD without evidence of PE but noted with atelectasis. Patient is wheezing in upper airways with raspy cough. Patient will be admitted for her hypoxia requiring 2LNC for SPO2 > 91%. She did desaturate on room air while talking. Will provide nebulizers with albuterol as well as hypertonic saline to assist with expectoration of secretions, flutter valve QID, and azithromycin for anti-inflammatory properties. Will check Influenza on admission- currently consistent with URI/Bronchitis with atelectasis. COVID test on admission is: NEGATIVE Principal Diagnosis Mild bronchitis w/ atelectasis Hypoxia--suspect multifactorial--JENNIFFER (suspected) and OHS Discharge Exam GENERAL: 81 yo morbidly obese WF. NAD. LUNGS: Diminished throughout but suspect this is due more so to body habitus, no obvious adventitious BS appreciated CARDIOVASCULAR: Regular rate and rhythm. ABDOMEN: Soft, non-tender and non-distended. BS x 4 quad. EXTREMITIES: No edema. Non-tender. Peripheral pulses +2/4. NEUROLOGIC: A&O x3. PSYCHIATRIC: Cooperative. Appropriate mood and affect. SKIN: Warm, dry, intact. No rashes or lesions. Discharge Data Allergies Allergy/AdvReac Type Severity Reaction Status Date / Time Sulfa (Sulfonamide Allergy Unknown Verified 02/13/22 15:32 Antibiotics) Consultations 02/13/22 16:17 ED Decision to Admit Stat Ordered Studies Chest X-Ray 02/13/22 13:09 SINGLE VIEW CHEST CLINICAL HISTORY: Dyspnea. FINDINGS: An AP, portable, upright chest radiograph is compared to study dated 02/09/2022. Correlation is made with chest CT dated 01/10/2018. The examination is degraded by portable technique and large body habitus. The heart is top normal for projection. Mild pulmonary vascular congestion persists. Airspace opacities are noted at the left lung base. No pneumothorax is seen. The skeletal structures are osteopenic. The bony thorax is grossly intact. Degenerative change is noted in the shoulders and thoracic spine. IMPRESSION: 1. Mild pulmonary vascular congestion persists. 2. Airspace opacities are seen at the left lung base. This could represent atelectasis versus a mild infectious/inflammatory pneumonitis. Clinical correlation will be required. ACT 112: Negative or not required by law. Electronically signed by: Hang Bush M.D. 02/13/2022 1:37 PM Chest CTA 02/13/22 13:45 CT ANGIOGRAM OF THE CHEST CLINICAL HISTORY: Atypical chest pain. Cough and dyspnea. COMPARISON STUDY: Chest x-ray dated 02/13/2022. Chest CT dated 01/10/2018. TECHNIQUE: Following the IV administration of 120 cc of Optiray 320, CT angiogram of the chest was performed from the upper abdomen to the thoracic inlet utilizing the pulmonary embolus protocol. Images are reviewed in the axial, sagittal, and coronal planes. 3-D MIPS images are created and assessed. IV contrast was administered without complication. A dose lowering technique was utilized adhering to the principles of ALARA. Number Examination is compromised by motion artifact. There is also streak artifact from the left arm which could not be elevated above the chest. CT DOSE: 889.97 mGy.cm FINDINGS: Thyroid: Enlarged and heterogeneous. Thoracic aorta: There is mild atherosclerotic calcification of the thoracic aorta, with is normal in caliber and demonstrates standard 3-vessel arch irina alma. No dissection is seen. Pulmonary vasculature: The pulmonary trunk is normal in caliber. There are no filling defects identified in main, lobar, or segmental pulmonary branches to suggest pulmonary embolus. The subsegmental branches are not well assessed due to motion artifact. Heart: The heart is mildly enlarged and without pericardial effusion. Lungs and pleural spaces: Evaluation of the lung parenchyma is degraded by motion artifact. The trachea and central airways are clear. Scarring/atelectasis is noted at the lung bases. No pleural effusion is identified. There is no airspace consolidation typical for pneumonia. A 4 mm left upper lobe pulmonary nodule is seen on image #212. This was present on 01/10/2018. A 2 mm left lower lobe nodule is seen on image #133. This was not seen previously, possibly due to motion artifact Mediastinum: There is no mediastinal lymphadenopathy. Vesta: Clear. Axillae: There is no axillary lymphadenopathy. Upper abdomen: Partially visualized upper abdominal viscera is within normal limits. Skeletal structures: The skeletal structures are osteopenic. Advanced spondylotic change is seen throughout the imaged spine. No lytic or blastic bony lesions are seen. IMPRESSION: 1. Streak and motion compromised examination. 2. There is no evidence of pulmonary embolus in the main, lobar, or segmental pulmonary arteries. 3. There is no airspace consolidation typical for pneumonia or pleural effusion. 4. Additional findings as above. ACT 112: Negative or not required by law. Electronically signed by: Hang Bush M.D. 02/13/2022 3:27 PM Hospital Course (1) Hypoxia: Hypoxia with what appears to be viral URI with bronchitis resulting in atelectasis congestion - Normal WBC with normal NLR and BNP is not elevated - Albuterol nebulizers schedule - Hypertonic saline BID with Flutter valve QID - Azithromycin in place of Augmentin for anti-inflammatory disease - CTA of chest negative for acute process or pneumonia - Upon further discussion with patient, she admits to chronic hypoxia (sats ranging from 87-93%) at home for quite some time * Pt has a finger pulse ox monitor and frequent checks at home * Believe this is largely in part d/t her body habitus causing OHS * Clinically also suspicious of JENNIFFER, would advise outpatient sleep study (2) CKD (chronic kidney disease) stage 3, GFR 30-59 ml/min: Stable follow while in house - avoid nephrotoxic medications (3) Urinary symptom or sign: Chronic [place]ence [place] [facility] [place] needs (4) Obesity: Likely has component of obesity hypoventilation with increasing HCo3 over past year - would likely benefit from sleep study as outpatient - requires assistance at home from her for ADLS- also requsted wheelchair for assistance in getting around - weight loss would be recommended (5) CAD (coronary artery disease): nonobstructive by review from 2002- no further workup or stratification needed as she is reportedly without symptoms with review of her cardiology notes - continue BB, ASA, ARB - hold her OMEGA 3-6-9 complex (6) Chronic systolic (congestive) heart failure: - Stable last ECHO in 2013 - this is not an acute exacerbation - On Lasix which has been continued - Has chronic HUERTA which is unchanged over past several years (7) Hypertension: As above appears well controlled - Continue with BB, ARB, Lasix (8) Hypercholesterolemia: - Not on a statin, unsure as to why (9) Insulin-requiring or dependent type II diabetes mellitus: Patient with difficult control of diabetes with history of hypoglycemia as well - Will continue home lantus - place on sliding scale aspart insulin with CF 20 and ration 1:9 - snack at bedtime - Would consider splitting lantus to enable better absorption due to requiring 100 units at HS Pt is medically and hemodynamically stable for discharge. Will arrange for home O2 and complete 3 more days of Azithromycin. RT performed two step pulse oximetry study and determined pt needs 2L of supplemental oxygen with ambulation. Case management has been notified and script signed and faxed to [employer] who will arrange for delivery. Recommend utilizing Mucinex at home to assist in mobilizing/breaking up mucus to allow her to better expectorate. Advise f/u with pcp within 1 week of discharge. Above plan of care has been d/w Dr. Jw Wolf who has also seen and evaluated this patient prior to discharge. Total Time Total Time Spent Total Time Spent (In Minutes): >30 minutes Discharge Plan Discharge Items Patient Disposition: Home - Self-Care Reason For Visit: DYSPNEA Discharge Diagnosis: Mild bronchitis Low oxygen levels Activity: Resume your previous activity Non-emergency contact: Primary Care Provider Call non-emergency contact if: you have any medication questions and your symptoms worsen Follow-up/Referrals: Honey Gonzalez MD [Primary Care Provider] - Diet: Carb Consistent or DM2 Addtl Attending Provider Instructions: You were hospitalized due to shortness of breath and low oxygen levels. You underwent imaging of your lungs that did not demonstrate any evidence of pneumonia, blood clots, or fluid in your lungs. We suspect that this is due to mild case of bronchitis. For that reason, you have been started on an antibiotic called Zithromax of which you received 2 doses in the hospital. You will be due for 3 more doses, next dose is due tomorrow (02/15/22) morning. A prescription for this medication has been sent to your pharmacy. You were also noted to have low oxygen levels. But, as we discussed, you have been having this for quite awhile at home. This could be in part due to your weight. We would strongly recommend that you try to modify your diet in order to promote weight loss. Subsequently, it is recommended that you continue using oxygen upon discharge. Case management will assist in getting this arranged. Your test to determine how much oxygen you needed demonstrated that you need 2L of oxygen to wear with activity (walking, etc.) This has been prescribed for you and will be delivered to your home. We would recommend follow up with your primary care provider within 1 week of discharge. In the event of any questions or concerns, please don't hesitate to contact the nonemergency number listed on your discharge paperwork. In the event of a medical emergency, call 911. Pending Studies at Discharge: No Stand-Alone Forms: My [facility] [place] [employer], Smoking Cessation Medications and DC Order Prescriptions: New azithromycin 250 mg Tablet 250 mg PO QAM Qty: 3 RF: 0 Continued (DME) pen needle, diabetic [BD Ultra-Fine Jenny Pen Needle] 32 gauge x 5/32" needle See Rx Instructions .ROUTE .MEDSUPPLY Qty: 400 RF: 3 carvedilol 25 mg tablet 25 mg PO BID Qty: 180 RF: 3 furosemide 40 mg tablet 40 mg PO BID Qty: 180 RF: 3 (DME) blood sugar diagnostic Strip See Rx Instructions .ROUTE .MEDSUPPLY Qty: 300 RF: 3 insulin aspart U-100 100 unit/mL (3 mL) insulin pen 100 unit subcut DAILY 90 Days Qty: 90 RF: 1 clonazepam 0.5 mg tablet 0.25 mg PO DAILY PRN (Reason: Anxiety) RF: 0 duloxetine 60 mg capsule,delayed release(DR/EC) 60 mg PO DAILY RF: 0 risperidone 1 mg tablet 1 mg PO QPM RF: 0 omeprazole 20 mg capsule,delayed release(DR/EC) 20 mg PO DAILY Qty: 90 RF: 0 losartan 100 mg tablet 100 mg PO DAILY Qty: 90 RF: 0 cyanocobalamin (vitamin B-12) 2,500 mcg tablet 2,500 mcg PO DAILY RF: 0 cinnamon bark 500 mg capsule 500 mg PO DAILY RF: 0 trazodone 100 mg tablet 100 mg PO DAILY RF: 0 insulin glargine U-300 conc 300 unit/mL (3 mL) insulin pen 112 unit SQ HS 90 Days Qty: 36 RF: 3 Glucagon (HCl) Emergency Kit 1 mg recon soln 1 mg subcut Q20M PRN (Reason: hypoglycemia) Qty: 1 RF: 5 (DME) FreeStyle Eladio 2 Sensor Kit See Rx Instructions .Route RF: 0 aspirin 81 mg Tablet,Delayed Release (Dr/Ec) 81 mg PO DAILY RF: 0 calcium carbonate-vitamin D2 600 mg calcium- 200 unit Tablet 1 tab PO BID RF: 0 Baqsimi 3 mg/actuation spray,non-aerosol 3 mg intranasal ONCE PRN (Reason: Hypoglycemia) RF: 0 fish,bora,flax oils-om3,6,9no1 [Calera 3-6-9 Complex] 400-400-400 mg Capsule 1 cap PO DAILY RF: 0 codeine-guaifenesin 10-100 mg/5 mL liquid 5 ml PO BID PRN (Reason: Cough) RF: 0 albuterol sulfate 90 mcg/actuation HFA aerosol inhaler 2 puff INHALATION Q6H RF: 0 cholecalciferol (vitamin D3) 25 mcg (1,000 unit) Tablet 25 mcg PO DAILY RF: 0 Discontinued amoxicillin-pot clavulanate 875-125 mg tablet 1 tab PO BID RF: 0 Discharge Orders: Discharge Order (Routine); Ordered 02/14/22 Ordered By: Mahnaz Yost/Other Patient Handouts: Understanding Oxygen Therapy, Using Oxygen Safely, Using an Oxygen Tank at Home Admission Data Admit Date/Time: 02/13/22 18:08 Attending Provider: Jw Wolf Admit Provider: Kimani Ortiz Primary Care Provider: Honey Gonzalez Other Providers: Jw Wolf Other Interventions: Discharge Summary Assessment (RN) Last Done: 02/14/22 14:21 Supervising Physician Co-Signing Physician Notes I supervised Mahnaz Finney PA-C on this admission. I interviewed and examined the patient independently of her. The plan is as written in the her note except for any following changes/exceptions: Doing well today. Shortness of breath at baseline. Hypoxemia is likely from some level of obesity hypoventilation. Arranging home O2. Coding Level of Care Code D/C DAY MANAGEMENT >30 MINS Diagnoses Hypoxia R09.02 CKD (chronic kidney disease) stage 3, GFR 30-59 ml/min N18.30 Urinary symptom or sign R39.9 Obesity E66.9 CAD (coronary artery disease) I25.10 Chronic systolic (congestive) heart failure I50.22 Hypertension I10 Hypercholesterolemia E78.00 Insulin-requiring or dependent type II diabetes mellitus E11.9; Z79.4
[2022-02-14] MEDS ORDERED: ALBUT/IPRATROP 3MG/0.5MG NEB 3 ML VIAL NEB SCH (19:00)
[2022-02-14] MEDS ORDERED: INSULIN GLARGINE 100 UNIT/ML VIAL SQ SCH (21:00)
--- NOTE | 2022-02-15 09:03 | Electrocardiogram Report ---
Test Reason : Blood Pressure : / mmHG Vent. Rate : 068 BPM Atrial Rate : 068 BPM P-R Int : 172 ms QRS Dur : 150 ms QT Int : 450 ms P-R-T Axes : 066 -27 116 degrees QTc Int : 478 ms Normal sinus rhythm Left bundle branch block Abnormal ECG When compared with ECG of 26-OCT-2021 03:12, No significant change was found Confirmed by Anmol Maloney ([id number]) on 02/15/2022 9:03:26 AM Referred By: REFERRED SELF Confirmed By:Anmol Maloney
== END 2022-02-14 18:10 | disposition home or self-care (01) | DRG 202 ==
LOC: ED 12:59 → 3N 18:08 → SUATTDRO 18:08 → 3N 18:40